=== PATIENT | male | born 1945 | race Caucasian/White ===

== ENCOUNTER 2024-04-19 15:19 | Inpatient (IN) | payer MEDICARE, OTHER ==
--- OUTSIDE RECORDS SUMMARY | 2024-04-19 15:25 | XMS REPORT | Continuity of Care Document ---
Author Name Unknown Address [address] [facility] [address] [place] [address] [facility] thconnect Address [address] 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 Crating Name Role Phone Gwendolyn Thomas Primary Care Physician [phone] TROY SHARMA Attending Clinician Unavailable ALEJANDRINA SANDS Attending Clinician Alejandrina Simon MD Attending Clinician [phone] Doctor Unassigned, [place] Attending Clinician Troy Means MD Attending Clinician [phone] Payers Payer Name Policy Type Policy Number Effective Date Expirati on Date Source MEDICARE PART A \\T\\ B [id number] 2012 00:00:00 2021 00:00:00 [facility]AC[facility] [id number] 2012 00:00:00 2022 00:00:00 [place] [place]MI[place] H[place]/POS [id number] 2022 00:00:00 Problems Condition Name Condition Details Condition Category Status Onset Date Resolution Date Last Treatment Date Treating Clinician Comments Source Pneumonia Pneumonia Disease Active 03-23 00:00: 00 [facility] Hematuria Hematuria Disease Active 6 00:00: 00 [facility] Elbow pain Elbow pain Disease Active 03-06 00:00: 00 [facility] Pulmonary embolism Pulmonary embolism Disease Active 03-05 00:00: 00 [facility] Allergies, Adverse Reactions, Alerts Allergy Name Allergy Type Status Severity Reaction(s) Onset Date Inactive Date Treating Clinician Comments Source Iodine And Iodide Containi ng Products Propensi ty to adverse reaction s Active Hives 06-24 00:00: 00 [facility] Iodine Propensi ty to adverse reaction s Active Itching 03-22 00:00: 00 [facility] Nitrofur antoin Macrocry stalline Propensi ty to adverse reaction s Active Itching 03-22 00:00: 00 [facility] Iodinate d Contrast - Oral and IV Dye DA Active MS 03-17 00:00: 00 [facility] Iodinate d Contrast - Oral and IV Dye DA Active U 16 00:00: 00 [facility] Penicill ins DA Active MS 16 00:00: 00 [facility] Sulfa (Sulfona mide Antibiot ics) DA Active MS 16 00:00: 00 [facility] nitrofur antoin DA Active MS 16 00:00: 00 [facility] bee venom protein (honey bee) DA Active MO 16 00:00: 00 [facility] Amoxicil sudhir Propensi ty to adverse reaction s Active Rash 19 00:00: 00 [facility] Bee Sting / Venom Propensi ty to adverse reaction s Active Swelling 03-04 00:00: 00 [facility] Penicill ins Propensi ty to adverse reaction s Active Rash 03-04 00:00: 00 [facility] Sulfa (Sulfona mide Antibiot ics) Propensi ty to adverse reaction s Active Rash 03-04 00:00: 00 [facility] Social History Social Habit Start Date Stop Date Quantity Comments Source History of tobacco use Cigarette Smoker [facility] Exposure to SARS-CoV-2 (event) 2022-06-14 00:00:00 2022-06-24 08:06:00 Not sure [facility] Alcohol intake 2019-03-23 00:00:00 2019-03-23 00:00:00 Current non-drinker of alcohol (finding) [facility] Tobacco use and exposure 2018-04-16 00:00:00 2018-04-16 00:00:00 Smokeless tobacco non-user [facility] Sex Assigned At 1945 00:00:00 1945 00:00:00 [facility] Smoking Status Start Date Stop Date Source Ex-smoker 2018-04-16 00:00:00 2018-04[facility] Medications Ordered Medication Name Filled Medication Name Start Date Stop Date Current Medication? Ordering Clinician Indication Dosage Frequency Signature (SIG) Comments Components Source APIXABAN ORAL 06-24 18:21: 53 Yes 5mg Take 5 mg by mouth 2 (two) times daily. [facility] Levothyroxi ne 50 mcg capsule 03-23 01:32: 48 Yes 50ug Take 50 mcg by mouth daily. [facility] gabapentin 600 mg tablet 03-23 01:32: 48 Yes 600mg Take 600 mg by mouth 2 (two) times daily. [facility] allopurinol 100 mg tablet 03-23 01:32: 48 Yes 100mg Take 100 mg by mouth daily. [facility] tamsulosin 0.4 mg 24 hr capsule 03-23 01:32: 48 Yes .4mg Take 0.4 mg by mouth every evening. [facility] cyanocobala min, vitamin B-12, 1,000 mcg Cap 03-23 01:32: 48 Yes 1000ug Take 1,000 mcg by mouth daily. [facility] simvastatin 20 mg tablet 03-23 01:32: 48 Yes 20mg Take 20 mg by mouth at bedtime. [facility] lisinopril 5 mg tablet 03-23 01:32: 48 Yes 5mg Take 5 mg by mouth at bedtime. [facility] metoprolol tartrate 25 mg tablet 03-23 01:32: 48 Yes 25mg Take 25 mg by mouth 2 (two) times daily. [facility] glipiZIDE 10 mg tablet 03-23 01:32: 48 Yes 7.5mg Take 7.5 mg by mouth 2 (two) times daily before breakfast and dinner. [facility] HYDROcodone -acetaminop hen (NORCO) 10-325 mg tablet 03-23 01:32: 48 Yes 1{tbl} Take 1 tablet by mouth every 4 (four) hours as needed. [facility] metFORMIN 500 mg tablet 03-23 01:32: 48 Yes 500mg Take 500 mg by mouth 2 (two) times daily with meals. [facility] levoFLOXaci n (LEVAQUIN) 750 mg tablet 03-23 00:00: 00 Yes [id number] 750mg Take 1 tablet by mouth every 24 (twenty-fo ur) hours. [facility] Vital Signs Vital Name Observation Time Observation Value Comments S ourcarole Systolic blood pressure 2022-06-24 13:17:00 118 mm[Hg] [facility] Diastolic blood pressure 2022-06-24 13:17:00 75 mm[Hg] [facility] Heart rate 2022-06-24 13:17:00 83 /min [facility] Body temperature 2022-06-24 13:17:00 35.83 Faby [facility] Body height 2022-06-24 13:17:00 180.3 cm [facility] Body weight 2022-06-24 13:17:00 125.556 kg [facility] BMI 2022-06-24 13:17:00 38.61 kg/m2 [facility] Oxygen saturation in Arterial blood by Pulse oximetry 2022-06-24 13:17:00 97 /min [facility] Procedures Procedure Date / Time Performed Performing Clinicia n Source REFERRAL- REQUEST/RESPONSE 2022-05-07 05:01:00 Doctor Unassigned, Potter [facility] Encounters Start Date/Time End Date/Time Encounter Type Admission Type Attending Clinicians Care Facility Care Department Encounter ID Source 2022-07-18 10:40:00 2022-07-18 10:40:00 [id number] 2022-07-18 10:40:00 2022-07-18 10:40:00 [facility] [id number] [facility] 2022-07-18 10:40:00 2022-07-18 10:40:00 [facility] [id number] [facility] 2022-06-24 08:30:00 2022-06-24 08:37:28 Outpatient R ALEJANDRINA SANDS [facility] [id number] [facility] 2022-06-24 08:30:00 2022-06-24 08:37:28 Office Visit Alejandrina Sands [facility] [id number] [facility] 2022-06-11 13:01:57 2022-06-11 13:01:57 [facility] [id number] [facility] 2022-06-11 13:00:47 2022-06-11 13:00:00 [facility] [id number] [facility] 2022-06-08 00:00:00 2022-06-08 00:00:00 Orders Only Doctor Unassigned, Potter [place] [id number] [id number] [facility] 2022-05-29 13:40:00 2022-05-29 14:45:50 Outpatient R EDITH [facility] [id number] [facility] 2022-05-29 13:40:00 2022-05-29 14:45:50 Outpatient R EDITH, [facility] [id number] [facility] 2022-05-29 13:40:00 2022-05-29 14:45:50 Outpatient R EDITH, [facility] [id number] [facility] 2022-05-29 13:40:00 2022-05-29 14:45:50 Office Visit Edith [facility] [id number] [id number] [facility] 2022-05-29 00:00:00 2022-05-29 00:00:00 Orders Only Doctor Unassigned, Potter [place] [id number] [id number] [facility] 2022-05-07 00:00:00 2022-05-07 00:00:00 Orders Only Doctor Unassigned, Potter [place] [id number] [id number] [facility] Results Test Description Test Time Test Comments Results Result Co mments Source CBC W/MANUAL [id number] 07:22:00* Test Item Value Reference Range Interpretation Comme nts WHITE BLOOD CELL (test code = WBC) 7.3 K/mm3 5.7-10.5 N RED BLOOD CELL (test code = RBC) 4.30 M/mm3 4.2-5.4 N HEMOGLOBIN (test code = HGB) 12.3 g/dL 12-16 N HEMATOCRIT (test code = HCT) 37.9 % 37-47 N MEAN CELL VOLUME (test code = MCV) 88 fL 80-98 N MEAN CELL HGB (test code = MCH) 28.6 pg 27-34 N MEAN CELL HGB CONCENTRATION (test code = MCHC) 32.5 g/dL 30.8-34.1 N RED CELL DISTRIBUTION WIDTH (test code = RDW) 14.6 % 11-16 N PLT (test code = PLT) 96 K/mm3 130-400 L MEAN PLATELET VOLUME (test code = MPV) 10.4 fL 8.9-12.1 N STAIN ACCEPTABILITY (test code = STN ACCEPTABLE) STAIN ACCEPTABLE CELLS COUNTED (test code = TCC) 100 >100 SEGMENTED NEUTROPHILS (test code = SEG) 74 % 50-65 H LYMPHOCYTE (test code = LYMPH) 11 % 20-40 LL MONOCYTE (test code = MON) 13 % 2-9 H EOSINOPHIL (test code = EOS) 2 % 1-3 N NUCLEATED RED BLOOD CELL (test code = NRBC) 0 % 0-0 N PLATELET ESTIMATE (test code = PLTEST) SLIGHT DECREASE CBC W/MANUAL [id number] 06:40:00* Test Item Value Reference Range Interpretation Comme nts WHITE BLOOD CELL (test code = WBC) 7.3 K/mm3 5.7-10.5 N RED BLOOD CELL (test code = RBC) 4.30 M/mm3 4.2-5.4 N HEMOGLOBIN (test code = HGB) 12.3 g/dL 12-16 N HEMATOCRIT (test code = HCT) 37.9 % 37-47 N MEAN CELL VOLUME (test code = MCV) 88 fL 80-98 N MEAN CELL HGB (test code = MCH) 28.6 pg 27-34 N MEAN CELL HGB CONCENTRATION (test code = MCHC) 32.5 g/dL 30.8-34.1 N RED CELL DISTRIBUTION WIDTH (test code = RDW) 14.6 % 11-16 N PLT (test code = PLT) 96 K/mm3 130-400 L MEAN PLATELET VOLUME (test c ode = MPV) 10.4 fL 8.9-12.1 N STAIN ACCEPTABILITY (test co de = STN ACCEPTABLE) CELLS COUNTED (test code = TCC) >100 SEGMENTED NEUTROPHILS (test code = SEG) % 50-65 LYMPHOCYTE (test code = LYMPH) % 20-40 NUCLEATED RED BLOOD CELL (te st code = NRBC) 0 % 0-0 N CBC W/AUTO [id number] 06:40:00* Test Item Value Reference Range Interpretation Comme nts WHITE BLOOD CELL (test code = WBC) 7.3 K/mm3 5.7-10.5 N RED BLOOD CELL (test code = RBC) 4.30 M/mm3 4.2-5.4 N HEMOGLOBIN (test code = HGB) 12.3 g/dL 12-16 N HEMATOCRIT (test code = HCT) 37.9 % 37-47 N MEAN CELL VOLUME (test code = MCV) 88 fL 80-98 N MEAN CELL HGB (test code = MCH) 28.6 pg 27-34 N MEAN CELL HGB CONCENTRATION (test code = MCHC) 32.5 g/dL 30.8-34.1 N RED CELL DISTRIBUTION WIDTH (test code = RDW) 14.6 % 11-16 N PLT (test code = PLT) 96 K/mm3 130-400 L MEAN PLATELET VOLUME (test code = MPV) 10.4 fL 8.9-12.1 N NEUTROPHIL % (test code = NT%) 70.4 % 45-70 H LYMPHOCYTE % (test code = LY%) 10.8 % 20-40 L MONOCYTE % (test code = MO%) 17.2 % 3-10 H EOSINOPHIL % (test code = EO%) 0.7 % 1-5 L BASOPHIL % (test code = BA%) 0.4 % 0.0-1.1 N NEUTROPHIL # (test code = NT#) 5.16 K/mm3 2.00-7.50 N LYMPHOCYTE # (test code = LY#) 0.79 K/mm3 1.50-4.00 L MONOCYTE # (test code = MO#) 1.26 K/mm3 0.2-0.8 H EOSINOPHIL # (test code = EO#) 0.05 K/mm3 0.04-0.4 N BASOPHIL # (test code = BA#) 0.03 K/mm3 0.02-0.10 N MANUAL DIFF REQUIRED (test code = MDIFF) YES MANUAL DIFF MANUAL DIFF REQUIRED. NUCLEATED RED BLOOD CELL (test code = NRBC) 0 % 0-0 N CBC W/MANUAL [id number] 06:40:00* Test Item Value Reference Range Interpretation Comme nts STAIN ACCEPTABILITY (test co de = STN ACCEPTABLE) CELLS COUNTED (test code = TCC) >100 SEGMENTED NEUTROPHILS (test code = SEG) % 50-65 LYMPHOCYTE (test code = LYMPH) % 20-40 [id number] 05:30:00* Test Item Value Reference Range Interpretation Comme nts GLUBED (test code = GLUBED) 106 mg/dL 60-125 N [id number] 20:21:00* Test Item Value Reference Range Interpretation Comme nts GLUBED (test code = GLUBED) 104 mg/dL 60-125 N [id number] 17:11:00* Test Item Value Reference Range Interpretation Comme nts GLUBED (test code = GLUBED) 100 mg/dL 60-125 N - XR HIP W/PEL UNI 2+V [id number] 12:37:00Patient Name: JAMIA DANIELLE Unit No: [id number] EXAMS: CPT CODE: [id number] XR HIP W/PEL UNI 2+[place] [address] AP PORTABLE RIGHT SHOULDER COMMENT: The patient is status post reverse prosthesis placement which is articulating normally. RIGHT HIP 2 VIEWS PORTABLE degenerative change is noted. There is no evidence for displaced fracture. at 1237 Reported and signed by: Anthony Powers MD CC: Shakir Bell; Fabián Childs MD Technologist: ANJUM BENTLEY, RT(R) Transcribed D/ (1237) tMONICAL [facility] NAME: JAMIA DANIELLE [address] [facility] [address] PHYS: Shakir Kim MD : 1945 AGE: 73 SEX: M [place], [place] [address] LOC: Y.314 A PHONE #: [phone] EXAM DATE: 03/17/2019 STATUS: ADM IN FAX #: [phone] RAD #: D/C DT PAGE 1 Signed Report PatientName: JAMIA DANIELLE Unit No: [id number] EXAMS: CPT CODE: [id number] XR HIP W/PEL UNI 2+[place] [address] (Continued) Orig Print D/T: S: 03/18/2019 (1240) [facility] NAME: JAMIA DANIELLE [address] [facility] PHYS: Shakir Kim MD : 1945 AGE: 73 SEX: M [place], [place] [address] LOC: Y.314 A PHONE #: [phone] EXAM DATE: 03/17/2019 STATUS: ADM IN FAX #: [phone] RAD #: D/C DT PAGE 2 Signed Report- XR SHOULDER 1 V [id number] 12:37:00Patient Name: JAMIA DANIELLE Unit No: [id number] EXAMS: CPT CODE: [id number] XR SHOULDER 1 [place] [address] AP PORTABLE RIGHT SHOULDER COMMENT: The patient is status post reverse prosthesis placementwhich is articulating normally. RIGHT HIP 2 VIEWS PORTABLE degenerative change is noted. There is no evidence for displaced fracture. at 1237 Reported and signed by: Anthony Powers MD CC: Fabián Childs MD Technologist:KRYSTAL KAISER RT(R) Transcribed D/ (1237) KatelynJCL [facility] NAME: JAMIA DANIELLE [address] [facility] PHYS: Fabián Rossi MD : 1945 AGE: 73 SEX: M [place], [place] [address] LOC: Y.314 A PHONE #: [phone] EXAM DATE: 03/17/2019 STATUS: ADM IN FAX #: [phone] RAD #: D/C DT PAGE 1 Signed Report Patient Name: MARLY DANIELLE Unit No: [id number] EXAMS: CPT CODE: [id number] XR SHOULDER 1 V RT [address] (Continued) Orig Print D/T: S: 03/18/2019 (1240) [facility] NAME: JAMIA DANIELLE [address] [facility] [address] PHYS: Fabián Rossi MD : 1945 AGE: 73 SEX: M [place], [place] [address] LOC: Marlene Yen PHONE #: [phone] EXAM DATE: 03/17/2019 STATUS: ADM IN FAX #: [phone] RAD #:D/C DT PAGE 2 Signed [id number] 11:56:00* Test Item Value Reference Range Interpretation Comme nts GLUBED (test code = GLUBED) 111 mg/dL 60-125 N B-TYPE NATRIURETIC [id number] 08:57:00* Test Item Value Reference Range Interpretation Comme nts B-TYPE NATRIURETIC PEPTIDE ( test code = BNP) 21.16 pg/mL 0-100 B-TYPE NATRIURETIC [id number] 08:57:00* Test Item Value Reference Range Interpretation Comme nts B-TYPE NATRIURETIC PEPTIDE ( test code = BNP) 21.16 pg/mL 0-100 N THROMBOPLASTIN TIME [id number] 07:41:00* Test Item Value Reference Range Interpretation Comme nts PTT ACTIVATED (test code = APTT) 30.2 secs 24.9-37.0 N IS PATIENT ON ANTICOAGULANTS ? MDas Lab been notified if Patient is on Heparin Drip? NOCOMPREHENSIVE METABOLIC [id number] 07:30:00* Test Item Value Reference Range Interpretation Comme nts SODIUM (test code = NA) 142 mmol/L 136-145 N POTASSIUM (test code = K) 4.5 mmol/L 3.5-5.1 N CHLORIDE (test code = CL) 103.0 mmol/L 98-107 N CARBON DIOXIDE (test code = CO2) 25.0 mmol/L 21-32 N GLUCOSE (test code = GLU) 117 mg/dL 70-110 H BLOOD UREA NITROGEN (test code = BUN) 22 mg/dL 7-18 H GLOMERULAR FILTRATION RATE (test code = GFR) 53.0 >60 Unit of m easure: mL/min/1.73 m2Lqlessdcj Range:Healthy Adults >90 mL/min/1.73 m2 For Chronic Kidney Disease: Stage II Mild Decrease in GFR 60-90 Stage III Moderate Decrease in GFR 30-59 Stage IV Severe Decrease in GFR 15-29 Stage V Kidney Failure <15 CREATININE (test code = CREAT) 1.33 mg/dL 0.55-1.30 H TOTAL PROTEIN (test code = PROT) 6.1 g/dL 6.4-8.2 L ALBUMIN (test code = ALB) 3.5 g/dL 3.4-5.0 N GLOBULIN (test code = GLOB) 2.6 g/dL 2.2-4.2 N ALBUMIN/GLOBULIN RATIO (test code = A/G) 1.4 0.7-2.0 N CALCIUM (test code = CA) 8.2 mg/dL 8.2-10.1 N BILIRUBIN TOTAL (test code = BILT) 0.35 mg/dL 0.2-1.00 N SGOT/AST (test code = AST) 25.0 U/L 15-37 N SGPT/ALT (test code = ALT) 33.0 U/L 12-78 N Please note new normal range. ALKALINE PHOSPHATASE TOTAL (test code = ALKP) 51 U/L 46-116 N [id number] 07:30:00* Test Item Value Reference Range Interpretation Comme nts MAGNESIUM (test code = MAG) 1.7 mg/dL 1.8-2.4 L CBC W/AUTO [id number] 05:52:00* Test Item Value Reference Range Interpretation Comme nts WHITE BLOOD CELL (test code = WBC) 7.5 K/mm3 5.7-10.5 N RED BLOOD CELL (test code = RBC) 4.32 M/mm3 4.2-5.4 N HEMOGLOBIN (test code = HGB) 12.3 g/dL 12-16 N HEMATOCRIT (test code = HCT) 38.0 % 37-47 N MEAN CELL VOLUME (test code = MCV) 88 fL 80-98 N MEAN CELL HGB (test code = MCH) 28.5 pg 27-34 N MEAN CELL HGB CONCENTRATION (test code = MCHC) 32.4 g/dL 30.8-34.1 N RED CELL DISTRIBUTION WIDTH (test code = RDW) 14.5 % 11-16 N PLT (test code = PLT) 92 K/mm3 130-400 L MEAN PLATELET VOLUME (test c ode = MPV) 10.2 fL 8.9-12.1 N NEUTROPHIL % (test code = NT%) 73.1 % 45-70 H LYMPHOCYTE % (test code = LY%) 11.1 % 20-40 L MONOCYTE % (test code = MO%) 15.0 % 3-10 H EOSINOPHIL % (test code = EO%) 0.1 % 1-5 L BASOPHIL % (test code = BA%) 0.3 % 0.0-1.1 N NEUTROPHIL # (test code = NT#) 5.46 K/mm3 2.00-7.50 N LYMPHOCYTE # (test code = LY#) 0.83 K/mm3 1.50-4.00 L MONOCYTE # (test code = MO#) 1.12 K/mm3 0.2-0.8 H EOSINOPHIL # (test code = EO#) 0.01 K/mm3 0.04-0.4 L BASOPHIL # (test code = BA#) 0.02 K/mm3 0.02-0.10 N MANUAL DIFF REQUIRED (test c ode = MDIFF) NO MANUAL DIFF NUCLEATED RED BLOOD CELL (te st code = NRBC) 0 % 0-0 N [id number] 05:25:00* Test Item Value Reference Range Interpretation Comme nts GLUBED (test code = GLUBED) 110 mg/dL 60-125 N [id number] 21:26:00* Test Item Value Reference Range Interpretation Comme nts GLUBED (test code = GLUBED) 180 mg/dL 60-125 H CBC W/AUTO [id number] 15:54:00* Test Item Value Reference Range Interpretation Comme nts WHITE BLOOD CELL (test code = WBC) 5.6 K/mm3 5.7-10.5 L RED BLOOD CELL (test code = RBC) 4.15 M/mm3 4.2-5.4 L HEMOGLOBIN (test code = HGB) 12.0 g/dL 12-16 N HEMATOCRIT (test code = HCT) 37.0 % 37-47 N MEAN CELL VOLUME (test code = MCV) 89 fL 80-98 N MEAN CELL HGB (test code = MCH) 28.9 pg 27-34 N MEAN CELL HGB CONCENTRATION (test code = MCHC) 32.4 g/dL 30.8-34.1 N RED CELL DISTRIBUTION WIDTH (test code = RDW) 14.8 % 11-16 N PLT (test code = PLT) 66 K/mm3 130-400 LL PLT ESTIMATE FROM SLIDE REVIEW: SLIGHTLY DECREASEDFEW LARGE PLTS PRESENT MEAN PLATELET VOLUME (test code = MPV) 10.7 fL 8.9-12.1 N NEUTROPHIL % (test code = NT%) 81.7 % 45-70 H LYMPHOCYTE % (test code = LY%) 11.9 % 20-40 L MONOCYTE % (test code = MO%) 4.3 % 3-10 N EOSINOPHIL % (test code = EO%) 0.5 % 1-5 L BASOPHIL % (test code = BA%) 0.5 % 0.0-1.1 N NEUTROPHIL # (test code = NT#) 4.53 K/mm3 2.00-7.50 N LYMPHOCYTE # (test code = LY#) 0.66 K/mm3 1.50-4.00 L MONOCYTE # (test code = MO#) 0.24 K/mm3 0.2-0.8 N EOSINOPHIL # (test code = EO#) 0.03 K/mm3 0.04-0.4 L BASOPHIL # (test code = BA#) 0.03 K/mm3 0.02-0.10 N MANUAL DIFF REQUIRED (test code = MDIFF) NO MANUAL DIFF NUCLEATED RED BLOOD CELL (test code = NRBC) 0 % 0-0 N [id number] 11:21:00* Test Item Value Reference Range Interpretation Comme nts GLUBED (test code = GLUBED) 100 mg/dL 60-125 N - CT UP EXTREM W/O CONT [id number] 06:50:00Patient Name: JAMIA DANIELLE Unit No: [id number] EXAMS: CPT CODE: [id number] CT UP EXTREM W/[place] [address] TECHNIQUE: Volumetric CT data of the right shoulder was obtained without use of intravenous contrast. Images were then viewed in the axial, coronal and sagittal planes. CT radiation doseoptimization is achieved for this examination by the use of a CT protocol in accordance with ACR practice standards and adherence to director housekeeping's recommendations. INDICATION: PAIN COMPARISON: None. 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 There is also fatty infiltration of the teres minor. The subscapularis muscle is normal in size.. The humeral head is elevated, abutting the acromion undersurface which is slightly remodeled. Severe glenohumeral degenerative changes are seen with obliteration of the anterior joint space. Loose body superiorly measures 7 mm. Moderate AC joint degenerative changes. Visualized right lung is clear. 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 at 0650 Reported and signed by: Cabrera Marcelo M.D. CC: Fabián Childs MD Technologist: Neena Tyler, RT(R) CTDI: DLP: Trnscrpt: 03/02/2019 (0650) Kaya [facility] NAME: JAMIA DANIELLE [address] [facility] PHYS: Fabián Rossi MD : 1945 AGE: 73 SEX: M [place] [address] LOC: Y.RAD PHONE #: [phone] EXAM DATE: 03/01/2019 STATUS: DEP CLI FAX #: [phone] RAD #: D/C DT PAGE 1 Signed Report Patient Name: JAMIA DANIELLE Unit No: [id number] EXAMS: CPT CODE: [id number] CT UP EXTREM W/[place] [address] (Continued) Orig Print D/T: S: 03/02/2019 (0653) [facility] NAME: JAMIA DANIELLE [address] [facility] PHYS: Fabián Rossi MD : 1945 AGE: 73 SEX: M [place] [address] LOC: Y.RAD PHONE #: [phone] EXAM DATE: 03/01/2019 STATUS: DEP CLI FAX #: [phone] RAD #: D/C DT PAGE 2 Signed ReportPROTHROMBIN [id number] 17:04:00* Test Item Value Reference Range Interpretation Comme nts PROTHROMBIN TIME PATIENT (test code = PTP) 13.8 secs 10.1-12.5 H INTERNATIONAL NORMAL RATIO (test code = INR) 1.22 <2.0 RECOMMENDED THER APEUTIC RANGE FOR ORAL ANTICOAGULANTTREATMENT: CONDITION INRProphylaxis of venous thrombosis in 2.0 - 3.0 high-risk medical or surgical patientsTreatment of venous thrombosis 2.0 - 3.0Prevention of embolism 2.0 - 3.0Prevention of recurrent embolism, or 3.0 - 4.5 patients with mechanical prosthetic intravascular valves IS PATIENT ON ANTICOAGULANTS ? YLIST ANTICOAGULANT/ANTI PLT MEDICATION : OtherHas Lab been notifiedif Patient is on Heparin Drip? NOIf Yes, order CBC, OCCULT BLOOD, PT every other day NTHROMBOPLASTIN TIME [id number] 17:04:00 * Test Item Value Reference Range Interpretation Comme nts PTT ACTIVATED (test code = APTT) 36.3 secs 24.9-37.0 N IS PATIENT ON ANTICOAGULANTS ? YLIST ANTICOAGULANT/ANTI PLT MEDICATION : OtherHas Lab been notifiedif Patient is on Heparin Drip? NOIf Yes, order CBC, OCCULT BLOOD, PT every other day NCOMPREHENSIVE METABOLIC [id number] 16:09:00* Test Item Value Reference Range Interpretation Comme nts SODIUM (test code = NA) 144 mmol/L 136-145 N POTASSIUM (test code = K) 4.3 mmol/L 3.5-5.1 N CHLORIDE (test code = CL) 104.0 mmol/L 98-107 N CARBON DIOXIDE (test code = CO2) 29.7 mmol/L 21-32 N GLUCOSE (test code = GLU) 85 mg/dL 70-110 N BLOOD UREA NITROGEN (test code = BUN) 19 mg/dL 7-18 H GLOMERULAR FILTRATION RATE (test code = GFR) 67.4 >60 Unit of m easure: mL/min/1.73 v3Gjljhupmd Range:Healthy Adults >90 mL/min/1.73 m2 For Chronic Kidney Disease: Stage II Mild Decrease in GFR 60-90 Stage III Moderate Decrease in GFR 30-59 Stage IV Severe Decrease in GFR 15-29 Stage V Kidney Failure <15 CREATININE (test code = CREAT) 1.08 mg/dL 0.55-1.30 N TOTAL PROTEIN (test code = PROT) 7.1 g/dL 6.4-8.2 N ALBUMIN (test code = ALB) 4.2 g/dL 3.4-5.0 N GLOBULIN (test code = GLOB) 2.9 g/dL 2.2-4.2 N ALBUMIN/GLOBULIN RATIO (test code = A/G) 1.5 0.7-2.0 N CALCIUM (test code = CA) 9.5 mg/dL 8.2-10.1 N BILIRUBIN TOTAL (test code = BILT) 0.47 mg/dL 0.2-1.00 N SGOT/AST (test code = AST) 21.0 U/L 15-37 N SGPT/ALT (test code = ALT) 33.0 U/L 12-78 N Please note new normal range. ALKALINE PHOSPHATASE TOTAL (test code = ALKP) 63 U/L 46-116 N CBC W/AUTO UHUA9376-80-51 15:57:00* Test Item Value Reference Range Interpretation Comme nts WHITE BLOOD CELL (test code = WBC) 4.8 K/mm3 5.7-10.5 L RED BLOOD CELL (test code = RBC) 5.58 M/mm3 4.2-5.4 H HEMOGLOBIN (test code = HGB) 16.0 g/dL 12-16 N HEMATOCRIT (test code = HCT) 48.7 % 37-47 H MEAN CELL VOLUME (test code = MCV) 87 fL 80-98 N MEAN CELL HGB (test code = MCH) 28.7 pg 27-34 N MEAN CELL HGB CONCENTRATION (test code = MCHC) 32.9 g/dL 30.8-34.1 N RED CELL DISTRIBUTION WIDTH (test code = RDW) 14.6 % 11-16 N PLT (test code = PLT) 89 K/mm3 130-400 L Platelets review ed in smear.Platelet estimate: slightly decreasedPlatelet morphology: few large platelets present MEAN PLATELET VOLUME (test code = MPV) 10.1 fL 8.9-12.1 N NEUTROPHIL % (test code = NT%) 59.4 % 45-70 N LYMPHOCYTE % (test code = LY%) 26.9 % 20-40 N MONOCYTE % (test code = MO%) 10.4 % 3-10 H EOSINOPHIL % (test code = EO%) 1.7 % 1-5 N BASOPHIL % (test code = BA%) 0.8 % 0.0-1.1 N NEUTROPHIL # (test code = NT#) 2.87 K/mm3 2.00-7.50 N LYMPHOCYTE # (test code = LY#) 1.30 K/mm3 1.50-4.00 L MONOCYTE # (test code = MO#) 0.50 K/mm3 0.2-0.8 N EOSINOPHIL # (test code = EO#) 0.08 K/mm3 0.04-0.4 N BASOPHIL # (test code = BA#) 0.04 K/mm3 0.02-0.10 N MANUAL DIFF REQUIRED (test code = MDIFF) NO MANUAL DIFF NUCLEATED RED BLOOD CELL (test code = NRBC) 0 % 0-0 N Notes Date/Time Note Provider Source 2019-03-19 09:23:00 [id number] HdejZr5dg82CpR39UfYDvmw/Anand/m blbzhlVYB0ySZ7P+arB66cwH0shQp04Fsb1504-02-70A22:2 3:00 [facility] ([facility])Clinical NoteREPORT#:[id number] REPORT STATUS: SignedDATE:03/19/19 TIME: 922 PATIENT: JAMIA DANIELLE UNIT #: [id number]#: [id number] [facility] AGE: 73 SEX: M ATTEND: Fabián Childs [facility] AUTHOR: Everardo Salazar MD * ALL edits or amendments must be made on the electronic/computer document * Clinical NoteNote:[facility] Everardo aSnchez M.D. (cell text [phone]) Assessment/Plan1.) Anemia of acute blood loss Thrombocytopenia- .Hgb 12.3(unchanged), Plt 96K, asymptomatic.2.) POD#2 Right RSA- .acute pain control. Anticoagulation as per Dr. Childs.3.) Hypertension- .follow BP and hold Rxs if SBP<120.4.) Diabetes2 CKDz2 BPH Hyperlipidemia Hypothyroid- .continue on Rxs. Glucose controlled.* OK for DISCHARGE per Internal Medicine. Prior Events/Overnight: Moved to 5th floorChief Complaint: No significant complaints. Sitting up in chair ObjectiveVital SignsDate Temp Pulse Resp B/P B/P Mean Pulse Ox GkQ569/03-03/19 97.9-100.2 80-106 16-18 100-147/59- 76.4-102.4 97-100 28-40 80 Gen: Alert, oriented, in mild discomfort Neck: No Masses, No Thyromegaly-CV: Regular Rate Rhythm / Edema- no significant Resp: Clear To Ascultation / Normal Respiratory EffortABD: NonTender / NonDistended MS/Skin: No Cyanosis / No nodules /wriggles fingers wrist RUE, good cap refill of digitsOther: shoulder dresing dry. Labs/X-ray: Laboratory Tests: 03/19 03/19 03/18 03/18 03/18 05 0500 2007 165 1113Chemistry POC Glucose (60 - 125 mg/dL) 106 104 100 111Hematology WBC (5.7 - 10.5 K/mm3) 7.3 RBC (4.2 - 5.4 M/mm3) 4.30 Hgb (12 - 16 g/dL) 12.3 Hct (37 - 47 %) 37.9 MCV (80 - 98 fL) 88 MCH (27 - 34 pg) 28.6 MCHC (30.8 - 34.1 g/dL) 32.5 RDW (11 - 16 %) 14.6 Plt Count (130 - 400 K/mm3) 96 L MPV (8.9 - 12.1 fL) 10.4 Add Manual Diff STAIN ACCEPTABLE Total Counted (100) 100 Seg Neutrophils % (50 - 65 %) 74 H Lymphocytes % (Manual) (20 - 40 11 *L%) Monocytes % (Manual) (2 - 9 %) 13 H Eosinophils % (Manual) (1 - 3 %) 2 Nucleated RBC % (0 - 0 %) 0 Platelet Estimate SLIGHT DECREASE Everardo Sanchez M.D. at 0952 RPT #:[id number] OF REPORT CLClinical dnaa8887-61-37V16:23:00Y.MZFA68178894-0018ISVspal able for patient nacwEKQJXJHJEKUECZ6701-71-98Z40:52:36 [facility] 2019-03-19 07:24:00 QMllowhbwbw54346617y NMdp8DE6YLWAMwjrbDNqIkP4CXmDj Pk3jE19is49nqH9VYVsvS88IZbgj48pxYB5240-12-36A07:2 4:00 [facility] ([facility])Discharge SummaryREPORT#:[id number] REPORT STATUS: SignedDATE:03/19/19 TIME: 723 PATIENT: JAMIA DANIELLE UNIT #: [id number]#: [id number] ROOM/BED: 519-ADOB: [birth year] AGE: 73 SEX: M ATTEND: Fabián Childs [facility] AUTHOR: Shakir Bell MD * ALL edits or amendments must be made on the electronic/computer document * General InformationDate of discharge: 03/19/19Hospital course:Discharge Diagnosis: Right rotator cuff arthropathyDischarge: Home Pt Condition: Stable Activity: Ambulate with Assistance Diet as tolerated Sig Findings: Post op thrombocytpenia requiring transfusion of pltsTreatment Rendered: Right reverse shoulder arthroplastyPrescriptions: On chart, Called inSpecial Instructions: shoulder arthroplastyFollow- up appointment: 2 Weeks Brief Hospital CourseThe patient underwent the above procedure on their admission date without complication. Postoperatively they were transferred to the orthopedic patient care unit. They received 24hrs postoperative antibiotics. He did have post op thrombocytopenia and was transfused plts. Medicine comanaged the patient .They were transitioned from IV to oral pain medications with good control at discharge. They were placed in a sling and worked on elbow/wrist ROM and ADLs with PT. Once patient met all criteria they were deemed appropriate for discharge. They had no other complications during the visit. Med Rec Med RecDischarge meds:Stop taking the following medications:APIXABAN (ELIQUIS) 5 MG TAB ORAL TWICE DAILY. Continue taking these medications:LEVOTHYROXINE (SYNTHROID) 50 MCG TAB 50 MICROGRAM ORAL DAILY. LISINOPRIL (ZESTRIL) 5 MG TAB 5 MILLIGRAM ORAL BEDTIME. TAMSULOSIN ER (FLOMAX) 0.4 MG CAP.SR.24H 0.4 MILLIGRAM ORAL EVERY EVENING. glipiZIDE (GLUCOTROL) 5 MG TAB 7.5 MILLIGRAM ORAL TWICE DAILY. GABAPENTIN (NEURONTIN) 300 MG CAP 600 MILLIGRAM ORAL TWICE DAILY. ALLOPURINOL (ZYLOPRIM) 100 MG TAB 100 MILLIGRAM ORAL DAILY. SIMVASTATIN (ZOCOR) 20 MG TAB 20 MILLIGRAM ORAL BEDTIME. CYANOCOBALAMIN (VITAMIN B-12) 1,000 MCG TAB 1,000 MICROGRAM ORAL DAILY. METOPROLOL TARTRATE (LOPRESSOR) 25 MG TAB 25 MILLIGRAM ORAL TWICE DAILY. metFORMIN (GLUCOPHAGE) 500 MG TAB 500 MILLIGRAM ORAL TWICE DAILY. at 0726 RPT #:[id number] OF REPORT DSDischarge hdjvuyf0914-83-06C58:24:00Y.AQEU38566121-7948OEHz ailable for patient tlxvUKBJAHVLUKHGPA6308-44-13S66:26:22 [facility] 2019-03-[facility] 07:21:00 HPwbepqlefa39215675n uYRFM3CyHLvzbmtodj2G/7Gwt9mqG Ijqivky2oMNa9tyg3t+Zcf3xFJusRAs1Hd1232-63-14L13:2 1:00 [facility] ([facility])Clinical NoteREPORT#:[id number] REPORT STATUS: SignedDATE:03/19/19 TIME: 07 PATIENT: JAMIA DANIELLE UNIT #: [id number]#: [id number] [facility] [birth year] AGE: 73 SEX: M ATTEND: Fabián Childs [facility] AUTHOR: Shakir Bell MD * ALL edits or amendments must be made on the electronic/computer document * Clinical NoteNote: Subjective: Patient is alert, oriented, and resting comfortably. Tolerating PO intake well. Pain is tolerable. Denies CP or SOB. Denies Numbness, tingling or weakness. Doing well, pain controlled Objective: R Shoulder- dressing is clean, dry, and intact. Arm in sling. Sensation intact to Axillary, radial, median, ulnar nerves Able to fire deltoid Intact motor function in radial, median, ulnar nerves Radial pulse palpable Drain low outputLaboratory Tests 03/19/19 0500:[Embedded Image Not Available]Vital SignsDate Temp Pulse Resp B/P B/P Mean Pulse Ox FqB610/03-03/19 36.4-37.9 80-106 16-18 100-147/59-8 76.4-102.4 97-100 28-40 0 Assessment/ Plan: s/p R RSA DC Drain by nursingThrombocytopenia- plts 96 this am, stablePain controlMed consult appreciate comanagementDispo-DC Home today when drain removedF/u in 2 weeks. at 0722 RPT #:[id number] OF REPORT CLClinical ghfm3930-18-92A02:21:00Y.HIRP03290965-3195DKAxpbd able for patient xmgqCRQHFOOBUBWTJO6824-40-71E29:23:13 [facility] 2019-03-18 09:11:00 APhnbnkakhw68021880b YNF+wXmADG3IySSIaZLCd0F3nKYhS p58UBwQUCFVfw6liF2NqZUycwEIegsHaPN2528-52-78A10:1 1:00 [facility] ([facility])Clinical NoteREPORT#:[id number] REPORT STATUS: SignedDATE:03/18/19 TIME: 910 PATIENT: JAMIA DANIELLE UNIT #: [id number]#: [id number] [facility] [birth year] AGE: 73 SEX: M ATTEND: Fabián Childs [facility] AUTHOR: Everardo Salazar MD * ALL edits or amendments must be made on the electronic/computer document * Clinical NoteNote:[facility] Everardo Sanchez M.D. (cell text [phone]) Assessment/Plan1.) Anemia of acute blood loss- .Hgb 12.3, asymptomatic.2.) S/p Right RSA- .acute pain control. Anticoagulation as per Dr. Childs.3.) Hypertension- .follow BP and hold Rxs if SBP<120.4.) Diabetes2 CKDz2 BPH Hyperlipidemia Hypothyroid- .continue on Rxs. Glucose controlled. Prior Events/Overnight: Uneventful.Chief Complaint: No significant complaints. ObjectiveVital SignsDate Temp Pulse Resp B/P B/P Mean Pulse Ox GxK188/-03/18 96.4-97.6 75-103 13-20 101-164/64-84 78.7-103 95-100 32-40 Gen: Alert, oriented, in mild discomfort Neck: No Masses, No Thyromegaly-CV: Regular Rate Rhythm / Edema- no significant Resp: Clear To Ascultation / Normal Respiratory EffortABD: NonTender / NonDistended MS/Skin: No Cyanosis / No nodules /wriggles fingers wrist RUE, good cap refill of digitsOther: shoulder dresing dry. Labs/X-ray: Laboratory Tests: 03/18 03/18 03/18 03/17 03/17 0507 0507 0505 2111 1514 Chemistry Sodium (136 - 145 mmol/L) 142 Potassium (3.5 - 5.1 mmol/L) 4.5 Chloride (98 - 107 mmol/L) 103.0 Carbon Dioxide (21 - 32 mmol/L) 25.0 BUN (7 - 18 mg/dL) 22 H Creatinine (0.55 - 1.30 mg/dL) 1.33 H Glomerular Filtr Rate (>60) 53.0 Glucose (70 - 110 mg/dL) 117 H POC Glucose (60 - 125 mg/dL) 110 180 H Calcium (8.2 - 10.1 mg/dL) 8.2 Magnesium (1.8 - 2.4 mg/dL) 1.7 L Total Bilirubin (0.2 - 1.00 mg/dL) 0.35 AST (15 - 37 U/L) 25.0 ALT (12 - 78 U/L) 33.0 Total Alk Phosphatase (46 - 116 U/L) 51 B-Natriuretic Peptide (0 - 100 pg/mL) 21.16 Total Protein (6.4 - 8.2 g/dL) 6.1 L Albumin (3.4 - 5.0 g/dL) 3.5 Globulin (2.2 - 4.2 g/dL) 2.6 Albumin/Globulin Ratio (0.7 - 2.0) 1.4 Coagulation APTT (24.9 - 37.0 secs) 30.2 Hematology WBC (5.7 - 10.5 K/mm3) 7.5 5.6 L RBC (4.2 - 5.4 M/mm3) 4.32 4.15 L Hgb (12 - 16 g/dL) 12.3 12.0 Hct (37 - 47 %) 38.0 37.0 MCV (80 - 98 fL) 88 89 MCH (27 - 34 pg) 28.5 28.9 MCHC (30.8 - 34.1 g/dL) 32.4 32.4 RDW (11 - 16 %) 14.5 14.8 Plt Count (130 - 400 K/mm3) 92 L 66 *L MPV (8.9 - 12.1 fL) 10.2 10.7 Neut % (Auto) (45 - 70 %) 73.1 H 81.7 H Lymph % (Auto) (20 - 40 %) 11.1 L 11.9 L [place] % (Auto) (3 - 10 %) 15.0 H 4.3 Eos % (Auto) (1 - 5 %) 0.1 L 0.5 L Baso % (Auto) (0.0 - 1.1 %) 0.3 0.5 Neut # (Auto) (2.00 - 7.50 K/mm3) 5.46 4.53 Lymph # (Auto) (1.50 - 4.00 K/mm3) 0.83 L 0.66 L [place] # (Auto) (0.2 - 0.8 K/mm3) 1.12 H 0.24 Eos # (Auto) (0.04 - 0.4 K/mm3) 0.01 L 0.03 L Baso # (Auto) (0.02 - 0.10 K/mm3) 0.02 0.03 Add Manual Diff (MANUAL DIFF) NO NO Nucleated RBC % (0 - 0 %) 0 0 05/02 1110 Chemistry POC Glucose (60 - 125 mg/dL) 100 Everardo Sanchez M.D. at 0936 RPT #:[id number] OF REPORT CLClinical ltpr6391-28-58V28:11:00Y.MLYS32621410-2351GKWeskl able for patient lwxsMFNIXZHSJRGFIF5354-67-06G04:36:30 [facility] 2019-03-18 07:47:00 XSwdblsexmu48568090q hq2NyiqtELBfmETAr3M7dzYxNfivs iA/stqJALckA6OVelfQC4GoUvfHYbvZVvN5205-03-46B48:4 7:00 [facility] ([facility])Pain Management Progress NoteREPORT#:[id number] REPORT STATUS: SignedDATE:03/18/19 TIME: 0747 PATIENT: JAMIA DANIELLE UNIT #: [id number]#: [id number] [facility] [birth year] AGE: 73 SEX: M ATTEND: Fabián Childs MDADM AUTHOR: Shari Gaspar NP * ALL edits or amendments must be made on the electronic/computer document * SubjectiveChief Complaint:R SHOULDER PAIN S/P TSAComments:Last Documented: Result Date Time Pulse Ox 99 03/18 459 B/P 111/69 03/18 0459 B/P Mean 83.3 03/189 O2 Delivery Nasal cannula 03/18 459 Temp 36.0 03/18 045 Pulse 75 03/18 0459 Resp 17 03/18 045 FiO2 32 03/18 0219 O2 Flow Rate 3.406618 03/18 219 History: PMH: NIDDM, HTN, BPH, PE-04/02 POD: 1 APMS RN: Micheal BOND RN MD who placed block: DR. DELGADO Type of block: IS S/S Time block wore off: "SOMETIME DURING THE NIGHT" Activity status: PT SITTING UP IN BED EATING BREAKFAST. Pain: DENIES PAIN Physical Exam: VAS: 0 LOS: 1 Resp Quality: 1 Side Effects: NONE PT APPEARS COMFORTABLE AT THIS TIME. MOTOR MVMT AND STRENGTH INTACT TO RUE. Plan: BLOCK FOLLOW UP at 0749 RPT #:[id number] OF REPORT PRProgress Antf1336-58-80F01:47:00Y.UJUD72595692-2340LZRyyrw able for patient xnkiINLXGXSDHUDAIX1417-08-10Y25:49:45 [facility] 2019-03-18 07:47:00 CSznxptkcgn74338751/ Wi8b5qg4B3C//9qNQb0htLU0M+gvu zIWf7pR9sv4Hk2e8z6hk9CYMXavkt47OUK9151-10-49E09:4 7:00 [facility] ([facility])Pain Management Progress NoteREPORT#:[id number] REPORT STATUS: SignedDATE:03/18/19 TIME: 746 PATIENT: JAMIA DANIELLE UNIT #: [id number]#: [id number] [facility] [birth year] AGE: 73 SEX: M ATTEND: Fabián Childs MDADM AUTHOR: Shari Gaspar NP * ALL edits or amendments must be made on the electronic/computer document * SubjectiveChief Complaint:R SHOULDER PAIN S/P TSAComments:Last Documented: Result Date Time Pulse Ox 99 03/18 459 B/P 111/69 03/18 459 B/P Mean 83.3 03/18 459 O2 Delivery Nasal cannula 03/18 459 Temp 36.0 03/18 459 Pulse 75 03/18 0459 Resp 17 03/18 459 FiO2 32 03/18 021 O2 Flow Rate 3.994197 03/18 219 History: PMH: NIDDM, HTN, BPH, PE-04/02 POD: 1 APMS RN: Micheal BOND RN MD who placed block: DR. DELGADO Type of block: IS S/S Time block wore off: "SOMETIME DURING THE NIGHT" Activity status: PT SITTING UP IN BED EATING BREAKFAST. Pain: DENIES PAIN Physical Exam: VAS: 0 LOS: 1 Resp Quality: 1 Side Effects: NONE PT APPEARS COMFORTABLE AT THIS TIME. MOTOR MVMT AND STRENGTH INTACT TO RUE. Plan: BLOCK FOLLOW UP at 0749 at 1102 [facility] #:[id number] OF REPORT PRProgress Cmkf6187-26-42A91:47:00Y.FGIY12852175-4497JQHsksi able for patient ebeoSKEGNUJKFHOYZK4425-08-49Z77:02:22 [facility] 2019-03-18 07:45:00 YIondetlvns74318108l 7hUsax5PW+1OjfAdQJnxMghRXk32l z4HCae0wkNVmo4ZuIde2znQxGj4+m22d/e4450-58-24X78:4 5:00 [facility] ([facility])Clinical NoteREPORT#:[id number] REPORT STATUS: SignedDATE:03/18/19 TIME: 07 PATIENT: JAMIA DANIELLE UNIT #: [id number]#: [id number] [facility] [birth year] AGE: 73 SEX: M ATTEND: Fabián Childs [facility] AUTHOR: Shakir Bell MD * ALL edits or amendments must be made on the electronic/computer document * Clinical NoteNote:Subjective: Patient is alert, oriented, and resting comfortably. Tolerating PO intake well. Pain is tolerable. Denies CP or SOB. Denies Numbness, tingling or weakness. Received 2 units Plts last night. Objective: R Shoulder- dressing is clean, dry, and intact. Arm in sling. Sensation intact to Axillary, radial, median, ulnar nerves Able to fire deltoid Intact motor function in radial, median, ulnar nerves Radial pulse palpable Drain high output Laboratory Tests 03/18/19 0507:[Embedded Image Not Available] 03/17/19 1514:[Embedded Image Not Available]Vital Signs Date Temp Pulse Resp B/P B/P Mean Pulse Ox FiO2 03/17-03/18 35.8-36.4 75-103 13-20 111-164/64-84 83.3-103 95-100 32 Assessment/ Plan: s/p R RSA Maintain drain, transition to gravity, monitor outputThrombocytopenia- plts 92 this am, monitorTransition to oral pain medsMed consult appreciate comanagementDispo- likely dc home tomorrow at 0746 [facility] #:[id number] OF REPORT CLClinical vrdz4180-26-06Y99:45:00Y.JXIS25521059-4153IPDgmwg able for patient vbjzYSNUFTARZQSMAX3036-66-84W20:47:05 [facility] 2019-03-17 18:08:00 HVomzpsdeyy90445255B GtRiGb5c6RlBluqRKNLaztIMcYKMJ l4ZYWS5B+bz7V0Ch5YHH6GvNMGksUaTOGP5180-64-63N74:0 8:00 [facility] ([facility])Clinical NoteREPORT#:[id number] REPORT STATUS: SignedDATE:03/17/19 TIME: 1808 PATIENT: JAMIA DANIELLE UNIT #: [id number]#: [id number] [facility] [birth year] AGE: 73 SEX: M ATTEND: Fabián Childs [facility] AUTHOR: Everardo Salazar MD * ALL edits or amendments must be made on the electronic/computer document * Clinical NoteNote:[facility] Everardo Sanchez MD(cell text [phone])Internal Medicine Consult at request of : Dr Fabián Childs Chief Complaint: Right shoulder pain HPI: .73 yo M now s/p Right total shoulder arthroplasty (TSA) with reverse prosthesis by Dr. Childs. relates years of progressive right shoulder pain (recently severe), worse with activity, and achy and stiff at times in quality. He has failed conservative management. Comorbidities: see below. 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 Type 2 diabetes, Fatty liver with splenomegaly, Hypercholesterolemia, , CKD 2, BPH, Nephrolithiasis, Hypothyroidism, Gout, Peripheral neuropathy ALLERGY: Allergies:bee venom protein (honey bee) (Coded, Intermediate, SWELLING., 03/01/19)Iodinated Contrast- Oral and IV Dye (Coded, Mild, RASH, 03/17/19)Penicillins (Coded, Mild, ITCHING, RASH., 03/01/19)Sulfa (Sulfonamide Antibiotics) (Coded, Mild, ITCHING, RASH., 03/01/19)nitrofurantoin (From MACRODANTIN) (Coded, Mild, ITCHING, RASH., 03/01/19) Home Medications: Home Medications:LEVOTHYROXINE (SYNTHROID) 50 MCG PO DAILY LISINOPRIL (ZESTRIL) 5 MG PO BEDTIME APIXABAN (ELIQUIS) 5 MG PO BID TAMSULOSIN ER (FLOMAX) 0.4 MG PO QPM glipiZIDE (GLUCOTROL) 7.5 MG PO BID GABAPENTIN (NEURONTIN) 600 MG PO BID ALLOPURINOL (ZYLOPRIM) 100 MG PO DAILY SIMVASTATIN (ZOCOR) 20 MG PO BEDTIME CYANOCOBALAMIN (VITAMIN B-12) 1,000 MCG PO DAILY METOPROLOL TARTRATE (LOPRESSOR) 25 MG PO BID metFORMIN (GLUCOPHAGE) 500 MG PO BID SgHx: .Knee arthroscopy, lithotripsy x 12, Right RCR, Left TKA SHx: Tob: Quit 1983 FHx: .No significant hx of DVT/PE.Alcohol: none Drugs: none Lives: with spouse and children ROS: [X] too sleepy to fully participate in ROS Vitals:Vital Signs Date Temp Pulse Resp B/P B/P Mean Pulse Ox FiO2 /02 97.3-97.6 86-103 13-20 130-164/68-84 93-103 95-100 32 Gen: Alert, in mild discomfort, nl nutrition.EYE: Nl lids conjunctiva.ENT: Nl ears Nose, nl lips,. Neck: Supple, nl thyroid, No masses.CV: Regular Rate Rhythm, no heave or significant murmur. Edema- none Feet toes normal temperature.RESP: Clear to Auscultation, normal Respiratory effort.ABD: Soft, NonDistended, obeseLYM: No significant cervical Lymphadenopathy.MS: No Clubbing, cyanosis, shoulder dressing dry (tender), arm in sling,wriggles RUE digits.NEURO: Nonfocal, grossly normal sensation of LE, . Preop Labs(03/01/19): CBC:. Hgb 16, Plt 89, CHEM: Na 144, K 4.3, Cr 1.08 (eGFR 67.4%), . Ekg: NSR (medium to high risk of complications or morbidity) (major surgery) (IV sedative, meds) Assessment Plan1.) Anemia of Acute Blood Loss- .will recheck 03/18/19. 2.) S/p Right RSA- .acute pain control. Anticoagulation as per Dr. Childs.3.) Hypertension- .follow BP and hold Rxs if SBP<120.4.) Diabetes2]CKDz2 BPH Hyperlipidemia Hypothyroid- .continue on Rxs. Everardo Sanchez M.D. Thanks! at 2240 RPT #:[id number] OF REPORT CLClinical qpac7992-84-07D22:08:00Y.OHSH58596585-7779CSYjxev able for patient ljryBBIWHTZNRLIJRS9102-27-89A19:40:59 [facility] 2019-03-17 15:16:00 LOmuamowrjh02476459G FmNZYrVow/1weW6bOzTKvCUwsCS3k lA3kWMYgknk83lV0IxoaMG3eGcaljm296P7451-82-96H66:1 6:[id number] [facility] [place] [address] PATIENT NAME: JAMIA DANIELLE ADMIT DATE: 03/17/19ACCOUNT NO: [id number] ROOM NO: Y.519 AGE: 73 REPORT TYPE: OPERATIVE REPORT SEX: M ADMITTING PHYSICIAN:Fabián Childs MD ATTENDING PHYSICIAN:Fabián Childs MD OPERATION DATE: 03/17/2019 Admitted for IV pain control and IV antibiotics. SURGEON: Fabián Childs MD SORT LINE: Lai Paul MD SECOND TRAFFIC CLERK: Shakir Bell MD REASON FOR TRAFFIC CLERK: The skilled assistance of Lai Paul MD wasnecessary during this complex surgical procedure. He assisted with every aspectof the operation including, but not limited to, proper and safe positioning ofthe patient, obtaining adequate surgical exposure, manipulation of surgicalinstruments, suture management, surgical knot tying, the continual process ofhemostasis during the procedure itself in addition to surgical wound closure andremoval of the patient from the operating table and returning the [facility]to [facility]. His assistance allowed me to perform the most sensitiveand technical potions of this operation using 2 hands, thus enhancing efficiencyand patient safety. This would not be possible without the help of a skilledassistant familiar with the procedure and capable of safely performing theaforementioned tasks. ANESTHESIA: General anesthesia single shot block per anesthesia. PREOPERATIVE DIAGNOSES:1. Right shoulder rotator cuff tear arthropathy.2. Right shoulder chronic biceps tear.3. Right shoulder contracture. POSTOPERATIVE DIAGNOSES:1. Right shoulder rotator cuff tear arthropathy.2. Right shoulder chronic biceps tear.3. Right shoulder contracture. PROCEDURES PERFORMED: Right reverse total shoulder arthroplasty withcontracture release, CPT 80790. COMPLICATIONS: None. ESTIMATED BLOOD LOSS: 200 mL. PATIENT NAME: JAMIA DANIELLE DRAINS: Drain was used at the end. SPECIMEN: Humeral head resected as part of the replacement. No specimen sent. ANTIBIOTICS: Ancef and vancomycin infused prior to incision. He had a history of nonanaphylactic reaction to PENICILLIN in years past andtolerated Ancef. Topical tranexamic acid was provided preoperative Walchclassification A1 E1. Bone quality was good, but severe osteoarthriticfindings. Preoperative rotator cuff status severe changes, full-thicknesstearing of the supraspinatus, infraspinatus, and subscapularis with severe fattyinfiltration and atrophy. Biceps tendon was chronically torn. Subscapulariswas not repairable. IMPLANTS USED: I Just Shared Perform reverse baseplate, 25 mm standardtemplate for a 29, but definitely smaller at the time of surgery and a 25 mm fitvery well. The central post was a 7-mm press-fit post. Peripheral screws;inferior, 30 locking; superior, 30 locking; anterior, 34 nonlocking; posterior,22 nonlocking; glenosphere was 39 mm standard. Excellent final tightened. StemAscend Flex 5B PTC coated standard length press-fit tray, +0 low offset index 6o'clock; polyethylene 39+6 mm standard severe contracture preoperatively. Postoperatively, range of motion comfortably just within the glenohumeral jointalong with 120, 120, 50, 85, and 90. Timeout was called, confirming the site,side, and intended procedures. Needle and sponge counts were correct prior toclosure. Deep venous thrombosis prophylaxis perioperatively. Weightbear astolerated, bilateral lower extremities. The patient was marked. Consenthistory and physical was updated. Consent was obtained. The patient understoodthe risks and benefits including pain, bleeding, infection, injury to nerve orblood vessels a severe risk of medical complications in the setting of multipleDVT/PEs in his past. He is thrombocytopenic with hypersplenism. He requiredhematology/oncology clearance. The thought would be that his platelets [id number] will be concerning for possible bleeding. He is right now [id number],000. We followed him closely and followed him closely at the time of surgeryhad platelets available to be given if needed and intraoperative orpostoperatively. Additionally, block complications incomplete taoist ofrange of motion and complete pain relief infection with his significantdiabetes, walker use and additional complications, fall risk, periprostheticfracture, dislocation and possible need for resection arthroplasty. The patientunderstands. He has been waiting for this for years. [facility] He has had injections, significant nonoperative measures and desired to proceed. Board Saw Runner needed as noted above. INDICATIONS FOR SURGERY: Severe pain interfering with basic activities of dailyliving, not responding to nonoperative care desired to proceed. OPERATIVE FINDINGS: Severe glenohumeral joint arthritis, massive irreparablerotator cuff tears consistent with rotator cuff tear arthropathy. PROCEDURE IN DETAIL: The patient was seen, was identified and marked andconsented. History and physical was updated. Transferred to the operativeroom. Timeout was called, confirming the site, side, and intended procedures. Needle and sponge counts were correct prior to closure. We were cautiousthroughout to achieve hemostasis. He did not require platelet transfusionduring the surgery as we were able to achieve hemostasis. We will closely PATIENT NAME: JAMIA DANIELLE follow this and a drain was placed. After cleaned with alcohol and sterilelyprepped and draped, an iodine-impregnated barrier drape I made a standarddeltopectoral incision, identified cephalic vein, retracted this laterally,released comprehensively humeral and glenoid contracture, retracted theconjoined tendon medially. A suture and cautery ligated the circumflex vessels. Hemostasis was achieved here. Comprehensive releases as noted staying directlyon bone. Large osteophytes on the humeral head were resected to determine theanatomical neck cut along the B cut guide was made with proper resection height,instrumented the humerus to size 5, had a nice press fit, placed a cut protectorand then retracted the humerus out of the way. Performed additional releases onthe glenoid side and labrum was absent. Severe glenohumeral joint arthritis. Used to guide pin to determine the center point and confirmed this prior toproceeding. A 25-mm fit the best, the 29 was too large, reamed and thenprepared the glenoid, felt that a post would give him excellent fixation and wasvery pleased with this and impacted into place, the final implant. Aftercopious irrigation, placed the 4 screws, had excellent tightening and thenplaced the glenosphere with excellent final tightened. No inferior impingementzones were noted. Nice positioning. At this point, trialed, it had excellentrange of motion is noted with minimal pistoning. I removed the trial component,copiously irrigated, placed the final implant, had excellent press and theminimal pistoning range of motion is noted with no instability. No obviousimpingement zones or dislocation. Very stable and pleased copiously irrigated,achieved hemostasis, placed a deep drain. Closed with 0 Vicryl, 2-0 Vicryl andMonocryl for the skin and a sterile dressing, neutral rotation sling andadmission as noted. Nonweightbearing. Dictated By: Fabián Childs MD WT: OP:Y.HIM/MORBR/NTSDD: 03/17/2019 15:16:38DT: 03/17/2019 22:39:50Conf#: [id number]/DID#: [id number] Authenticated by Fabián Childs MD On 03/23/2019 09:28:38 AM at 0928 PATIENT NAME: JAMIA DANIELLE [id number]:39:00Y.[id number] lable for patient bfxfEDKXLBAUBSLVQB0056-82-53Z70:29:10 [facility] 15:12:00 [id number] bRDxM15K0cGxC7J5ryP124i65ulmP 6ymcM/E90RlMBQdc0BwbXVG4Tiz+u0GHRk7722-53-50A91:1 2:00 [facility]Clinical NoteREPORT#:[id number] REPORT STATUS: SignedDATE:03/17/19 TIME: 1511 PATIENT: JAMIA DANIELLE UNIT #: [id number]#: [id number] [facility] [birth year] AGE: 73 SEX: M ATTEND: Fabián Childs MDADM AUTHOR: Yuriy Delgado MD * ALL edits or amendments must be made on the electronic/computer document * Clinical NoteNote:APMS : 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 NORCO AND IVP DILAUDID FOR PAIN PRN Portions of this section were scribed by Pinky Bond on 03/17/19 at 1512 at 1604 RPT #:[id number] OF REPORT CLClinical thyq2664-14-00N88:12:00Y.[id number] able for patient emtgPHXENESQNTMEJT0743-37-00B33:04:38 [facility] 2019-03-17 15:05:00 TRbasofzabx38783878u N7wjoXcZjLhoolc8y5haNuodY0kaq ZSWu9mTS1n7nSAdiDSaQAKgWt6F6Qtv4eA6050-83-99R71:0 5:00 [facility] ([facility])Brief Op NoteREPORT#:[id number] REPORT STATUS: SignedDATE:03/17/19 TIME: 1505 PATIENT: JAMIA DANIELLE UNIT #: [id number]#: [id number] ROOM/BED: 998-11DOB: [birth year] AGE: 73 SEX: M ATTEND: Fabián Childs MDADM AUTHOR: Fabián Childs MD * ALL edits or amendments must be made on the electronic/computer document * Op/Inv Proc Note - BriefPre-procedure diagnosis:Right rotator cuff arthropathyPost-procedure diagnosis: same as pre procedure dxProcedures performed:Right reverse shoulder arthroplastyPrimary Surgeon:TejAssistant(s): Beverly BellFindings:Right rotator cuff arthropathyComplications: noneEstimated blood loss in ml's: 250Specimens removed/altered: noneDrain(s): hemovac at 1506 RPT #:[id number] OF REPORT OPOperative mrgrkb3222-75-69W08:05:00Y.[id number] ilable for patient xwurVREBZHLYQDZRMX6341-08-54M22:07:08 [facility] 2019-03-01 13:20:00 [id number] Cy6D3d7D/cnWclAg84Nm24plZEI8f NycPDx0OOJ1gcnQNB+jyduEfBhxaRhh5Z80990-61-03F09:2 0:[id number] [facility] [place] [address] PATIENT NAME: JAMIA DANIELLE ADMIT DATE: ACCOUNT NO: [id number] ROOM NO: AGE: 73 REPORT TYPE: ELECTROCARDIOGRAM SEX: M ADMITTING PHYSICIAN:Fabián Childs MD ATTENDING PHYSICIAN:Fabián Childs MD Order:[id number] Reason : PRE OP CLEARANCE HTN Test Date/Time Stamp:ThuMar 01 2019 13:20:35Blood Pressure : / mmHGVent. Rate : 076 BPM Atrial Rate : 076 BPM P-R Int : 152 ms QRS Dur : 078 ms QT Int : 360 ms P-R-T Axes : 067 051 073 degrees QTc Int : 405 ms Normal sinus rhythmNormal ECGNo previous ECGs availableConfirmed by LYNN RYAN MD ([id number]) on 03/11/2019 7:57:52 PM Referred By: Fabián Childs Confirmed by:LYNN RYAN MD at 1958 PATIENT NAME: JAMIA DANIELLE .[id number] AVAvailable for patient iskvGMULHBOLWTBJZA6390-57-35V81:59:24 [facility]
[2024-04-19] MEDS ORDERED: NA CHLORIDE 0.9% 1,000 ML ONE (16:49)
[2024-04-19] MEDS ORDERED: CEFTRIAXONE 1000 MG/VIAL ONE (16:49)
[2024-04-19 16:57] LABS: Protime INR 1.38
[2024-04-19 17:20] LABS: Specific Gravity > 1.030 (1.005-1.030); Sqamous Epithelial <5 /HPF (None Seen); Urine Bacteria None Seen /HPF (<20); Urine Bilirubin NEGATIVE (Negative); Urine Blood 2+ (Negative); Urine Clarity Clear (Clear); Urine Color Light-Yellow (Yellow); Urine Culture Reflex Order NOT NEEDED; Urine Glucose 4+ (Over) (Negative); Urine Ketones TRACE (Negative); Urine Microscopic Reflex YN ORDER UMIC; Urine Mucus Slight /HPF (None Seen); Urine Nitrite 1+ (Negative); Urine Protein 1+ (Negative); Urine RBC <5 /HPF (None Seen); Urine Urobilinogen Normal (Normal); Urine WBC <5 /HPF (<5); Urine WBC Clump Rare /HPF (None Seen); Urine pH 6.5 (5.0-7.0)
[2024-04-19 17:22] LABS: Albumin 3.7 g/dL (3.4-5.0); Anion Gap 10.8 mEq/L (5.0-15.0); Bilirubin Direct 0.2 mg/dL (0-0.2); Bilirubin Indirect, Calculated 0.7 mg/dL (0.2-0.8); Bilirubin Total 0.9 mg/dL (0.2-1.0); Globulin 3.8 g/dL (2.3-3.5); Potassium 3.8 mEq/L (3.5-5.1); Protein, Total 7.5 g/dL (6.4-8.2); Troponin High Sensitivity 6.5 pg/mL (<58.9)
--- NOTE | 2024-04-19 17:22 | RAD REPORT ---
EXAM DESCRIPTION: CT - Head C Spine Cap Vilma Munoz - 04/19/2024 4:52 pm CLINICAL HISTORY: Dizziness neck pain. Chest and abdominal. Urinary incontinence TECHNIQUE: Computed axial tomography of head, neck, chest, abdomen and pelvis obtained. IV and oral contrast not requested. Coronal and sagittal reconstruction performed. All CT scans are performed using dose optimization technique as appropriate and may include automated exposure control or mA/KV adjustment according to patient size. COMPARISON: CT chest 2018 FINDINGS: An intracranial bleed is not seen. The ventricles are normal in caliber. An extra-axial fluid collection is not noted. Fluid within the sinuses/mastoids is not seen. A cervical fracture is not seen. No dislocation is noted. Marked spondylosis cervical spine. Mild pos terior subluxation C3 on C4 and C4 on C5. Central and foraminal stenosis cervical spine The evaluation of mediastinum, radha, vessels, solid organs and bowel are limited secondary to the lac k of contrast administration. Lungs are clear. No mediastinal or hilar lymphadenopathy. Coronary arterial calcifications No pleural effusion. No pericardial Cholelithiasis. Gallbladder wall is not thickened. Multiple, bilateral renal calculi. No hydronephrosis. 2.5 centimeter low-density mass left kidney non specific without IV contrast but probably a cyst. Mild stranding adjacent to the bladder Liver, spleen, pancreas and adrenals grossly normal Mild anterior subluxation of L5 on S1. Spondylolysis L5. Moderate spondylosis involves spine. This re sults in spinal stenosis Mild prostatic enlargement IMPRESSION: No acute intracranial abnormality is seen. A cervical fracture is not visualized. If the patient continues to have symptoms to suggest intracran ial/spinal cord pathology MRI be recommended Cholelithiasis Multiple, bilateral nonobstructing renal calculi Mild stranding adjacent to the bladder may indicate inflammation
[2024-04-19 17:29] LABS: SARS-CoV-2 Antigen CONTROL BLUE LINE VIS/BG OK; SARS-CoV-2 Antigen Rapid Res Negative (Negative)
--- NOTE | 2024-04-19 17:35 | RAD REPORT ---
EXAM DESCRIPTION: [place] Single View04/19/2024 5:18 pm CLINICAL HISTORY: cough COMPARISON: none FINDINGS: The lungs appear clear of acute infiltrate. The heart is normal size IMPRESSION: No acute abnormalities displayed
[2024-04-19 17:38] LABS: Absolute Lymphocytes (CBC) 0.5 K/uL (0.7-4.9); Absolute Monocytes 1.5 K/uL (0.1-1.3); Absolute Neutrophil 7.3 K/uL (1.8-8.0); Basophils % 0.3 % (0-1.3); Eosinophils % 0.1 % (0-4.4); Hematocrit 51.4 % (39.6-49.0); Hemoglobin 16.8 g/dL (13.6-17.9); Lymphocytes % 5.7 % (15.3-44.8); MCH 28.9 pg (27.0-35.0); MCHC 32.7 g/dL (32.0-36.0); MCV 88.5 fL (80-100); MPV 7.8 fL (7.6-11.3); Monocytes % 16.3 % (3.3-12.3); Neutrophils % 77.6 % (41.7-73.7); Platelets 121 thou/uL (152-406); RBC Red Blood Cell Count 5.81 M/uL (4.33-5.43); Red Cell Distribution Width 15.5 % (12.1-15.2)
--- NOTE | 2024-04-19 18:04 | ER ---
Nurse's Notes [facility] Name: Dexter Matamoros Age: 78 yrs Sex: Male : 1945 Arrival Date: 04/19/2024 Time: 15:19 Bed 6 Private MD: Diagnosis: UTI/ Urinary tract infection, site not specified;Fever, unspecified;Dehydration;Sepsis, unspecified organism;Acute prostatitis;Tachycardia, unspecified;Pain in left knee Presentation: 04/19 15:36 Chief complaint: EMS states: patient has been having urinary incontinence for a few ap3 days. patient reports that he has also feeling as though he was drunk today. patient reports multiple falls today. Coronavirus screen: Client presents with at least one sign or symptom that may indicate coronavirus-19. Ebola Screen: No symptoms or risks identified at this time. Initial Sepsis Screen:. Risk Assessment: Do you want to hurt yourself or someone else? Patient reports no desire to harm self or others. Onset of symptoms is unknown. 15:36 Method Of Arrival: EMS: [facility] ap3 15:36 Acuity: BRINDA 3 ap3 Triage Assessment: 15:38 General: Appears in no apparent distress. Behavior is calm, cooperative, appropriate ap3 for age. General: Reports fatigue for. Pain: Denies pain. Neuro: Level of Consciousness is awake, alert, obeys commands, Oriented to person, place, time, situation, Reports weakness feeling like he is drunk. Cardiovascular: Patient's skin is warm and dry. Respiratory: Airway is patent Respiratory effort is even, unlabored, Respiratory pattern is regular, symmetrical. Historical: - Allergies: 15:37 PENICILLINS; ap3 15:37 bee stings; ap3 15:37 Sulfa (Sulfonamide Antibiotics); ap3 15:37 IV contrast; ap3 - Immunization history:: Client reports receiving the 2nd dose of the Covid vaccine, Flu vaccine is up to date. - Infectious Disease History:: Denies. - Social history:: Smoking status: Patient denies any tobacco usage or history of. Screenin:45 [facility] ED Fall Risk Assessment (Adult) History of falling in the last 3 months, ld1 including since admission No falls in past 3 months (0 pts). Abuse screen: Denies threats or abuse. Denies injuries from another. Nutritional screening: No deficits noted. Tuberculosis screening: No symptoms or risk factors identified. Assessment: 16:45 General: Appears in no apparent distress. comfortable, Behavior is calm, cooperative, ld1 appropriate for age. Pain: Complains of pain in right leg Pain does not radiate. Pain currently is 8 out of 10 on a pain scale. Quality of pain is described as throbbing. Neuro: Level of Consciousness is awake, alert, obeys commands, Oriented to person, place, time, situation. Cardiovascular: Capillary refill < 3 seconds Patient's skin is warm and dry. Rhythm is sinus tachycardia. Respiratory: Airway is patent Respiratory effort is even, unlabored. GI: Abdomen is round non-distended. : No signs and/or symptoms were reported regarding the genitourinary system. EENT: No signs and/or symptoms were reported regarding the EENT system. Derm: No signs and/or symptoms reported regarding the dermatologic system. Derm: No signs and/or symptoms reported regarding the dermatologic system. Derm: No signs and/or symptoms reported regarding the dermatologic system. Musculoskeletal: No signs and/or symptoms reported regarding the musculoskeletal system. 19:15 Reassessment: Patient appears in no apparent distress at this time. Patient and/or km8 family updated on plan of care and expected duration. Pain level reassessed. Patient is alert, oriented x 3, equal unlabored respirations, skin warm/dry/pink. General: Appears in no apparent distress. comfortable, Behavior is calm, cooperative, appropriate for age. Neuro: Level of Consciousness is awake, alert, obeys commands, Oriented to person, place, time, situation. Cardiovascular: Denies chest pain, shortness of breath, Patient's skin is warm and dry. Respiratory: Airway is patent Respiratory effort is even, unlabored, Respiratory pattern is regular, symmetrical. Derm: Skin is intact, is healthy with good turgor, Skin is dry, Skin is pink, warm \T\ dry. normal, Skin temperature is warm. 20:15 Reassessment: Patient appears in no apparent distress at this time. No changes from km8 previously documented assessment. Patient and/or family updated on plan of care and expected duration. Pain level reassessed. Patient is alert, oriented x 3, equal unlabored respirations, skin warm/dry/pink. 21:15 Reassessment: Patient appears in no apparent distress at this time. No changes from km8 previously documented assessment. Patient and/or family updated on plan of care and expected duration. Pain level reassessed. Patient is alert, oriented x 3, equal unlabored respirations, skin warm/dry/pink. Vital Signs: 15:36 Weight 117.03 kg; Height 6 ft. 0 in. ; ap3 16:39 Temp 97.5; ld1 16:45 BP 131 / 80; Pulse 123; Resp 20; Pulse Ox 98% on R/A; ld1 17:10 BP 99 / 68; Pulse 123; Resp 18; Pulse Ox 94% on R/A; ld1 19:00 BP 113 / 69; Pulse 113; Resp 20; Pulse Ox 95% on 3 lpm NC; km8 19:30 BP 119 / 73; Pulse 119; Resp 20; Pulse Ox 95% on 3 lpm NC; km8 20:00 BP 122 / 61; Pulse 115; Resp 20; Pulse Ox 94% on 3 lpm NC; km8 20:30 BP 121 / 65; Pulse 115; Resp 20; Pulse Ox 95% on 3 lpm NC; km8 21:00 BP 112 / 69; Pulse 115; Resp 22; Pulse Ox 95% on 3 lpm NC; km8 21:30 BP 127 / 67; Pulse 111; Resp 20; Pulse Ox 96% on 3 lpm NC; km8 15:36 Body Mass Index 34.99 (117.03 kg, 182.88 cm) ap3 [place] Coma Score: 17:54 Eye Response: spontaneous(4). Motor Response: obeys commands(6). Verbal Response: arron oriented(5). Total: 15. ED Course: 15:36 Patient arrived in ED. ap3 15:37 Triage completed. ap3 15:39 Arm band placed on right wrist. ap3 15:48 Uriel Mosley MD is Attending Physician. arron 16:44 Flu Sent. ld1 16:44 SARS RAPID Sent. ld1 16:44 Urinalysis w/ reflexes Sent. ld1 16:44 Lactate w/ 2H reflex if indic. Sent. ld1 16:45 Patient has correct armband on for positive identification. Placed in gown. Bed in low ld1 position. Call light in reach. Side rails up X2. 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 Pulse ox on. NIBP on. Door closed. Noise minimized. Warm blanket given. 16:45 Blood Culture Adult (2) Sent. ld1 16:45 Inserted saline lock: 22 gauge in right antecubital area, using aseptic technique. ld1 Blood collected. 16:45 No provider procedures requiring assistance completed. ld1 16:47 Tanisha Goodwin, RN is Primary Nurse. ld1 16:53 CT Traumagram (Head C Spine CAP wo con) In Process Unspecified. EDMS 17:20 XRAY Chest (1 view) In Process Unspecified. EDMS 18:02 Noah Beckman MD is Hospitalizing Provider. [facility] 19:26 Knee Left 3 View XRAY In Process Unspecified. EDMS 19:26 XRAY Hip LEFT 2 view In Process Unspecified. EDMS 19:55 Primary Nurse role handed off by Tanisha Goodwin, GRETEL as6 21:40 Nilda Hart RN is Primary Nurse. km8 21:40 Provided Education on: admission process. km8 21:42 Patient admitted, IV remains in place. 8 Administered Medications: 17:09 Drug: NS 0.9% IV 500 ml IV at bolus once Route: IV; Rate: bolus; Site: right ld1 antecubital; 19:00 Follow up: IV Status: Completed infusion; IV Intake: 500ml [facility] 17:09 Drug: Rocephin IV 1 grams IV at per protocol once; Given slow IV push per pharmacy ld1 instructions Route: IV; Rate: per protocol; Site: right antecubital; 19:00 Follow up: IV Status: Completed infusion [facility] 18:31 Drug: Meropenem IV 1 grams IV at per protocol once; (mix in NS 100 mL) Route: IV; Rate: ld1 per protocol; Site: right antecubital; 20:00 Follow up: IV Status: Completed infusion; IV Intake: 100ml [facility] 18:31 Drug: NS 0.9% IV 1000 ml IV at 1 bolus Per protocol; 1000 mL bolus Route: IV; Rate: 1 ld1 bolus; Site: right antecubital; 19:00 Follow up: IV Status: Completed infusion; IV Intake: 1000ml [facility] 18:31 Drug: NS 0.9% IV 1000 ml IV at 1 bolus Per protocol; 1000 mL bolus Route: IV; Rate: 1 ld1 bolus; Site: right antecubital; 19:00 Follow up: IV Status: Completed infusion; IV Intake: 1000ml km8 18:31 Drug: LevOfloxacin PO 500 mg PO once Route: PO; ld1 19:30 Follow up: Response: No adverse reaction km8 18:56 Drug: Ondansetron IVP 4 mg IVP once; over 2 minutes Route: IVP; Site: right antecubital;ld1 19:30 Follow up: Response: No adverse reaction km8 Medication: 21:42 VIS not applicable for this client. km8 Intake: 19:00 IV: 500ml; Total: 500ml. km8 19:00 IV: 1000ml; Total: 1500ml. km8 19:00 IV: 1000ml; Total: 2500ml. km8 20:00 IV: 100ml; Total: 2600ml. km8 Outcome: 18:04 Decision to Hospitalize by Provider. arron 22:21 Admitted to Med/surg accompanied by tech, via wheelchair, room 401, with oxygen, with km8 chart, 22:21 Condition: stable 22:21 Instructed on the need for admit, Demonstrated understanding of instructions, 22:22 Patient left the ED. km8 Signatures: Dispatcher [employer] EDMS Uriel Mosley MD MD cha Prokisch, Amanda RN RN karina3 Tanisha Goodwin RN RN olive1 Lalo Guevara RN RN as6 Nilda Hart, RN RN km8
--- NOTE | 2024-04-19 18:05 | EDPHYS ---
Physician Documentation [facility] Name: Dexter Matamoros Age: 78 yrs Sex: Male : 1945 Arrival Date: 04/19/2024 Time: 15:19 Bed 6 Private MD: MEGAN Physician Uriel Mosley HPI: 04/19 17:53 This 78 yrs old Male presents to ER via EMS with complaints of Urinary arron Incontinence. 17:53 The patient presents with urinary symptoms, dysuria, frequency, hematuria, urgency, arron urinary retention. Onset: The symptoms/episode began/occurred 3 day(s) ago. Modifying factors: The symptoms are alleviated by. Historical: - Allergies: 15:37 PENICILLINS; ap3 15:37 bee stings; ap3 15:37 Sulfa (Sulfonamide Antibiotics); ap3 15:37 IV contrast; ap3 - Immunization history:: Client reports receiving the 2nd dose of the Covid vaccine, Flu vaccine is up to date. - Infectious Disease History:: Denies. - Social history:: Smoking status: Patient denies any tobacco usage or history of. ROS: 17:54 Eyes: Negative for injury, pain, redness, and discharge, ENT: Negative for injury, arron pain, and discharge, Neck: Negative for injury, pain, and swelling, Cardiovascular: Negative for chest pain, palpitations, and edema, Respiratory: Negative for shortness of breath, cough, wheezing, and pleuritic chest pain, Abdomen/GI: Negative for abdominal pain, nausea, vomiting, diarrhea, and constipation, Back: Negative for injury and pain, MS/Extremity: Negative for injury and deformity, Skin: Negative for injury, rash, and discoloration, Neuro: Negative for headache, weakness, numbness, tingling, and seizure, Psych: Negative for depression, anxiety, suicide ideation, homicidal ideation, and hallucinations, Allergy/Immunology: Negative for hives, rash, and allergies, Endocrine: Negative for neck swelling, polydipsia, polyuria, polyphagia, and marked weight changes, Hematologic/Lymphatic: Negative for swollen nodes, abnormal bleeding, and unusual bruising, 17:54 Constitutional: Positive for body aches, chills, fatigue, fever, malaise, 17:54 : Positive for urinary symptoms, urinary frequency, small amounts, burning with urination, difficulty urinating, foul smelling urine, 17:54 Neuro: Positive for altered mental status, dizziness, headache, weakness, Exam: 17:54 Head/Face: Normocephalic, atraumatic. Eyes: Pupils equal round and reactive to light, arron extra-ocular motions intact. Lids and lashes normal. Conjunctiva and sclera are non-icteric and not injected. Cornea within normal limits. Periorbital areas with no swelling, redness, or edema. ENT: Nares patent. No nasal discharge, no septal abnormalities noted. Tympanic membranes are normal and external auditory canals are clear. Oropharynx with no redness, swelling, or masses, exudates, or evidence of obstruction, uvula midline. Mucous membranes moist. Neck: Trachea midline, no thyromegaly or masses palpated, and no cervical lymphadenopathy. Supple, full range of motion without nuchal rigidity, or vertebral point tenderness. No Meningismus. Chest/axilla: Normal chest wall appearance and motion. Nontender with no deformity. No lesions are appreciated. Respiratory: Lungs have equal breath sounds bilaterally, clear to auscultation and percussion. No rales, rhonchi or wheezes noted. No increased work of breathing, no retractions or nasal flaring. Back: No spinal tenderness. No costovertebral tenderness. Full range of motion. Male : Normal genitalia with no discharge or lesions. Skin: Warm, dry with normal turgor. Normal color with no rashes, no lesions, and no evidence of cellulitis. MS/ Extremity: Pulses equal, no cyanosis. Neurovascular intact. Full, normal range of motion. Neuro: Awake and alert, GCS 15, oriented to person, place, time, and situation. Cranial nerves II-XII grossly intact. Motor strength 5/5 in all extremities. Sensory grossly intact. Cerebellar exam normal. Normal gait. Psych: Awake, alert, with orientation to person, place and time. Behavior, mood, and affect are within normal limits. 17:54 Constitutional: The patient appears febrile, smells of urine, 17:54 Cardiovascular: Rate: tachycardic, actual rate is 120 bpm, Rhythm: regular, Pulses: Pulses are 4+ in bilateral radial, brachial, femoral, popliteal, posterior tibial and and dorsalis pedis arteries.. JVD: is not appreciated, 17:54 ECG was reviewed by the Attending Physician. 17:54 Musculoskeletal/extremity: Circulation is intact in all extremities. Sensation intact. Compartment Syndrome exam of affected extremity: is normal. Weight bearing: is unable to bear weight, DVT Exam: negative Homans' sign noted on exam, no appreciated bluish discoloration, no erythema, no increased warmth, pain, tenderness, that is moderate, of the left knee, 17:54 Neuro: Orientation: is normal, appropriate for stated age, no acute changes, Mentation: is normal, appropriate for stated age, no acute changes, Memory: is normal, appropriate for stated age, no acute changes, Cranial nerves: grossly normal, is grossly normal based on the patient's age, no acute changes, Motor: moves all fours, strength is 5/5 in the right arm, left arm, right leg and left leg, Sensation: no obvious gross deficits, appropriate no acute changes, Gait: not tested. seizure activity, is not displayed by the patient, Vital Signs: 15:36 Weight 117.03 kg; Height 6 ft. 0 in. ; ap3 16:39 Temp 97.5; ld1 16:45 BP 131 / 80; Pulse 123; Resp 20; Pulse Ox 98% on R/A; ld1 17:10 BP 99 / 68; Pulse 123; Resp 18; Pulse Ox 94% on R/A; ld1 19:00 BP 113 / 69; Pulse 113; Resp 20; Pulse Ox 95% on 3 lpm NC; km8 19:30 BP 119 / 73; Pulse 119; Resp 20; Pulse Ox 95% on 3 lpm NC; km8 20:00 BP 122 / 61; Pulse 115; Resp 20; Pulse Ox 94% on 3 lpm NC; km8 20:30 BP 121 / 65; Pulse 115; Resp 20; Pulse Ox 95% on 3 lpm NC; km8 21:00 BP 112 / 69; Pulse 115; Resp 22; Pulse Ox 95% on 3 lpm NC; km8 21:30 BP 127 / 67; Pulse 111; Resp 20; Pulse Ox 96% on 3 lpm NC; km8 15:36 Body Mass Index 34.99 (117.03 kg, 182.88 cm) ap3 [place] Coma Score: 17:54 Eye Response: spontaneous(4). Motor Response: obeys commands(6). Verbal Response: arron oriented(5). Total: 15. MDM: 15:48 Patient medically screened. arron 17:59 Differential diagnosis: urinary tract infection. Data reviewed: vital signs, nurses [facility] notes, lab test result(s), EKG, radiologic studies. Consideration of Admission/Observation Patient was admitted/placed on observation. Escalation of care including admission/observation considered. I considered the following discharge prescriptions or medication management in the emergency department Medications were administered in the Emergency Department. See MAR. Independent interpretation of the following test(s) in the Emergency Department EKG: See my EKG interpretation above CT Scan: My interpretation is ct traumagram. Test considered but Not performed: Ultrasound no abd usg. Historians other than the Patient: Spouse/Significant Other: and son. Care significantly affected by the following chronic conditions: Hypertension. Counseling: I had a detailed discussion with the patient and/or guardian regarding the historical points, exam findings, and any diagnostic results supporting the discharge/admit diagnosis, lab results, radiology results, the need for further work-up and treatment in the hospital. 04/19 15:52 Order name: Basic Metabolic Panel; Complete Time: 17:46 [facility] 04/19 15:52 Order name: CBC with Diff; Complete Time: 18:01 [facility] 04/19 15:52 Order name: LFT's; Complete Time: 17:46 [facility] 04/19 15:52 Order name: Magnesium; Complete Time: 17:46 [facility] 04/19 15:52 Order name: NT PRO-BNP; Complete Time: 17:46 [facility] 04/19 15:52 Order name: PT-INR; Complete Time: 17:46 [facility] 04/19 15:52 Order name: Troponin HS; Complete Time: 17:46 [facility] 04/19 15:52 Order name: Blood Culture Adult (2) [facility] 04/19 15:52 Order name: Lactate w/ 2H reflex if indic.; Complete Time: 17:46 [facility] 04/19 15:52 Order name: Urinalysis w/ reflexes; Complete Time: 17:46 [facility] 04/19 15:52 Order name: SARS RAPID; Complete Time: 17:46 [facility] 04/19 15:52 Order name: Flu; Complete Time: 17:46 [facility] 04/19 20:40 Order name: Thyroid Stimulating Hormone EDMS 04/19 20:40 Order name: CBC with Automated Diff EDMS 04/19 20:40 Order name: CBC with Automated Diff EDMS 04/19 20:40 Order name: Comprehensive Metabolic Panel [facility] 04/19 20:40 Order name: Comprehensive Metabolic Panel [facility] 04/19 15:52 Order name: XRAY Chest (1 view); Complete Time: 17:46 [facility] 04/19 15:52 Order name: CT Traumagram (Head C Spine CAP wo con); Complete Time: 17:46 [facility] 04/19 17:52 Order name: Knee Left [address] [facility] 04/19 18:35 Order name: XRAY Hip LEFT 2 view [facility] 04/19 15:52 Order name: EKG; Complete Time: 15:53 [facility] 04/19 20:40 Order name: CONS Physician Consult [facility] 04/19 15:52 Order name: Cardiac monitoring; Complete Time: 16:45 [facility] 04/19 15:52 Order name: EKG - Nurse/Tech; Complete Time: 16:45 [facility] 04/19 15:52 Order name: IV Saline Lock; Complete Time: 16:45 [facility] 04/19 15:52 Order name: Labs collected and sent; Complete Time: 16:45 [facility] 04/19 15:52 Order name: O2 Per Protocol; Complete Time: 15:54 [facility] 04/19 15:52 Order name: O2 Sat Monitoring; Complete Time: 15:54 [facility] 04/19 17:48 Order name: IV Saline Lock - Large Bore; Complete Time: 18:24 [facility] EC:54 Rate is 123 beats/min. Rhythm is regular. QRS [place] is Normal. TX interval is normal. QT arron interval is normal. No Q waves. T waves are Normal. No ST changes noted. Clinical impression: Sinus tachycardia and No evidence of ischemia. Interpreted by me. Reviewed by me. Administered Medications: 17:09 Drug: NS 0.9% IV 500 ml IV at bolus once Route: IV; Rate: bolus; Site: right ld1 antecubital; 19:00 Follow up: IV Status: Completed infusion; IV Intake: 500ml 17:09 Drug: Rocephin IV 1 grams IV at per protocol once; Given slow IV push per pharmacy ld1 instructions Route: IV; Rate: per protocol; Site: right antecubital; 19:00 Follow up: IV Status: Completed infusion [facility] 18:31 Drug: Meropenem IV 1 grams IV at per protocol once; (mix in NS 100 mL) Route: IV; Rate: ld1 per protocol; Site: right antecubital; 20:00 Follow up: IV Status: Completed infusion; IV Intake: 100ml 18:31 Drug: NS 0.9% IV 1000 ml IV at 1 bolus Per protocol; 1000 mL bolus Route: IV; Rate: 1 ld1 bolus; Site: right antecubital; 19:00 Follow up: IV Status: Completed infusion; IV Intake: 1000ml 18:31 Drug: NS 0.9% IV 1000 ml IV at 1 bolus Per protocol; 1000 mL bolus Route: IV; Rate: 1 ld1 bolus; Site: right antecubital; 19:00 Follow up: IV Status: Completed infusion; IV Intake: 1000ml 8 18:31 Drug: LevOfloxacin PO 500 mg PO once Route: PO; ld1 19:30 Follow up: Response: No adverse reaction 8 18:56 Drug: Ondansetron IVP 4 mg IVP once; over 2 minutes Route: IVP; Site: right antecubital;ld1 19:30 Follow up: Response: No adverse reaction 8 Disposition Summary: 04/19/24 18:04 Hospitalization Ordered Notes: Hospitalization Status: Inpatient Admission arron Provider: Noah Beckman cha Location: Telemetry/MedSurg (Inpatient) arron Condition: Fair arron Problem: new arron Symptoms: have improved arron Bed/Room Type: Standard [facility] Room Assignment: 401(04/19/24 20:50) rv1 Diagnosis - UTI/ Urinary tract infection, site not specified arron - Fever, unspecified arron - Dehydration arron - Sepsis, unspecified organism arron - Acute prostatitis arron - Tachycardia, unspecified arron - Pain in left knee arron Forms: - Medication Reconciliation Form arron - SBAR form arron - Leadership Thank You Letter arron Signatures: Dispatcher [employer] Uriel Merrill MD MD cha Prokisch, Amanda RN RN ap3 Tanisha Goodwin RN RN ld1 Hannah Hernandez rv1 Nilda Hart RN km8 Corrections: (The following items were deleted from the chart) 15:53 15:53 BASIC METABOLIC PANEL+C.LAB.BRZ ordered. EDMS EDMS 15:53 15:53 CBC+H.LAB.BRZ ordered. EDMS EDMS 15:53 15:53 HEPATIC FUNCTION+C.LAB.BRZ ordered. EDMS EDMS 15:53 15:53 MAGNESIUM+C.LAB.BRZ ordered. EDMS EDMS 15:53 15:53 PROBNP+C.LAB.BRZ ordered. EDMS EDMS 15:53 15:53 PROTIME (+INR)+COAG.LAB.BRZ ordered. EDMS EDMS 15:53 15:53 Troponin High Sensitivity+C.LAB.BRZ ordered. EDMS EDMS 15:53 15:53 BLOOD CULTURE*+BA.LAB.BRZ ordered. EDMS EDMS 15:53 15:53 LACTATE+C.LAB.BRZ ordered. EDMS EDMS 15:53 15:53 Urinalysis+U.LAB.BRZ ordered. EDMS EDMS 15:53 15:53 SARS-COV-2 Antigen Rapid+I.LAB.BRZ ordered. EDMS EDMS 15:53 15:53 Influenza Screen (A \T\ B)+BA.LAB.BRZ ordered. EDMS EDMS 17:52 17:52 Knee Left 3 View+RAD.RAD.BRZ ordered. EDMS EDMS 20:50 18:04 arron rv1
[2024-04-19] MEDS ORDERED: Meropenem 1000 MG/VIAL IV ONE (18:18)
[2024-04-19] MEDS ORDERED: NA CHLORIDE 0.9% 2,000 ML ONE (18:18)
[2024-04-19] MEDS ORDERED: levoFLOXacin 250 MG TAB ONE (18:18)
[2024-04-19] MEDS ORDERED: ONDANSETRON 4 MG/2 ML VIAL ONE (18:54)
--- NOTE | 2024-04-19 19:48 | RAD REPORT ---
EXAM DESCRIPTION: RAD - Knee Left 3 View - 04/19/2024 7:24 pm CLINICAL HISTORY: Left knee pain FINDINGS: No fracture or dislocation is seen. Left knee prosthesis in place. No evidence loosening of the visualized prosthesis
--- NOTE | 2024-04-19 19:49 | RAD REPORT ---
EXAM DESCRIPTION: RAD - Hip Left 2 View - 04/19/2024 7:25 pm CLINICAL HISTORY: Left hip pain status post injury FINDINGS: No fracture or dislocation is seen. Osteoporosis If the patient continues to have symptoms to suggest an occult fracture then a followup plain film se mo in 1 week would be recommended
--- NOTE | 2024-04-19 20:30 | P.HP ---
Certification for Inpatient Patient admitted to: Observation With expected LOS: <2 Midnights Patient will require the following post-hospital care: None Practitioner: I am a practitioner with admitting privileges, knowledge of patient current condition, hospital course, and medical plan of care. Services: Services provided to patient in accordance with Admission requirements found in Title 42 Section 412.3 of the Code of Federal Regulations Patient History Date of Service: 04/19/24 Reason for admission: Dysuria, fall History of Present Illness: 78-year-old male with past medical history of DM/HLD/hypothyroidism/prior history of pulmonary embolism/hypertension, obesity, CKD who presented because of dysuria since the last 1 days with pain with voiding. He denies any flank pain. He denies any fever or chills. He denies any hematuria. He states he was going to see his manager zone Dr. Stratton today when he stumbled and fell. He states he has been unable to lift his left leg since then. He is a very poor historian and his family at bedside also not helping with history. He does not have his medications with him and so most history is unable to be obtained well. Arrival in the ED vital signs were stable. He had a history of the chest abdomen and pelvics done with findings of 2.5 cm left kidney mass worrisome for cyst, mild stranding around the bladder, mildly enlarged prostate, there was also noted L5-S1 spondylosis worrisome for spinal stenosis. No cervical fracture was noted. Laboratory workup was unremarkable creatinine 1.2, urinalysis was shows no leukocyte esterase or WBC. He has been admitted for presumed prostatitis and spinal stenosis symptoms - Past Medical/Surgical History -: HTN -: hld -: ckd - Family History Family History: Reviewed- Non-Contributory - Social History Smoking Status: Never smoker Smoking therapy provided: No Patient receptive to therapy: No Alcohol use: No CD- Drugs: No Caffeine use: No Place of Residence: Home Review of Systems 10-point ROS is otherwise unremarkable Physical Examination - Physical Exam General: Alert, In no apparent distress, Oriented x3, Obese HEENT: Atraumatic, Normocephalic, PERRLA Neck: Supple, 2+ carotid pulse no bruit Respiratory: Clear to auscultation bilaterally, Normal air movement Cardiovascular: Normal pulses, Regular rate/rhythm, Normal S1 S2 Gastrointestinal: Normal bowel sounds, Soft and benign, Non-distended, No ascites Musculoskeletal: No swelling Integumentary: No rashes, No breakdown Neurological: Normal speech, Normal strength at 5/5 x4 extr, Sensation intact, Abnormal strength (Reduced strength of left leg ) - Studies Laboratory Data (last 24 hrs) 04/19/24 04/19/24 04/19/24 16:40 16:40 16:40 WBC 9.50 Hgb 16.8 Hct 51.4 H Plt Count 121 L PT 15.0 H INR 1.38 Sodium 135 L Potassium 3.8 BUN 16 Creatinine 1.20 Glucose 178 H Magnesium 2.0 Total Bilirubin 0.9 AST 12 L ALT 28 Alkaline Phosphatase 66 Microbiology Data (last 24 hrs): 04/19/24 16:26 Nasopharnyx Influenza Type A Antigen Screen - Final 04/19/24 16:26 Nasopharnyx Influenza Type B Antigen Screen - Final Assessment and Plan - Problems (Diagnosis) (1) Left leg weakness Current Visit: Yes Status: Acute - Plan Impression Left leg weaknessmay be due to sciatica/spinal stenosis Presumed prostatitis Hypertension HLD DM Hypothyroidism HLD Plan Start gentle IV fluid hydration Start empirical antibiotics with Rocephin Follow urine culture despite urinalysis not consistent with UTI Pain control Consult neurology Dr. Brand for further evaluation of spinal stenosis present sciatica May need MRI of the lumbar spine but will defer BP control Obtain home meds We reevaluate patient and obtain further history from family Lovenox for DVT prophylaxis Insulin sliding scale with Accu-Chek Total time spent evaluation of greater than 60 minutes - Advance Directives Does patient have a Living Will: No Does patient have a Durable POA for Healthcare: No
[2024-04-19] MEDS ORDERED: ACETAMINOPHEN 500 MG TAB PO PRN (20:33)
[2024-04-19] MEDS ORDERED: MORPHINE 2 MG/ML SYR IV PRN (20:33)
[2024-04-19] MEDS ORDERED: ALBUTEROL 2.5 MG/3 ML NEB SOL NEB PRN (20:33)
[2024-04-19] MEDS ORDERED: HYDRALAZINE HCL 20 MG/ML VIAL IV PRN (20:37)
[2024-04-19] MEDS ORDERED: LORAZEPAM 0.5 MG TABLET PO PRN (20:37)
[2024-04-19 23:34] VITALS: O2SAT 96
[2024-04-20] MEDS ORDERED: MORPHINE 4 MG/ML SYR IV PRN ×2 (00:06→00:25)
[2024-04-20] MEDS ORDERED: LORAZEPAM 0.5 MG TABLET PO PRN (00:22)
[2024-04-20] MEDS: Oxycodone HCl/Acetaminophen 5/325 MG TAB PO PRN (00:37)
[2024-04-20] MEDS: NA CHLORIDE 0.9% 1,000 ML IV SCH (00:38)
[2024-04-20] MEDS: INSULIN REGULAR (HUMAN) 100 UNIT/ML SQ SCH ×2 (07:30)
[2024-04-20] MEDS: ENOXAPARIN 40 MG/0.4 ML SQ SCH (08:18)
[2024-04-20] MEDS: ASPIRIN EC 81 MG TAB PO SCH (08:18)
[2024-04-20] MEDS: CEFTRIAXONE 1,000 MG in NA CHLORIDE 0.9% 50 ML IVPB SCH (08:18)
[2024-04-20 08:22] LABS: Absolute Lymphocytes (CBC) 0.8 K/uL (0.7-4.9); Absolute Monocytes 1.1 K/uL (0.1-1.3); Absolute Neutrophil 4.3 K/uL (1.8-8.0); Basophils % 0.3 % (0-1.3); Eosinophils % 0.3 % (0-4.4); Hematocrit 46.3 % (39.6-49.0); Lymphocytes % 12.7 % (15.3-44.8); MCH 28.9 pg (27.0-35.0); MCHC 32.4 g/dL (32.0-36.0); MCV 89.4 fL (80-100); MPV 7.5 fL (7.6-11.3); Monocytes % 17.7 % (3.3-12.3); Platelets 99 thou/uL (152-406); RBC Red Blood Cell Count 5.19 M/uL (4.33-5.43)
[2024-04-20 08:42] LABS: Albumin 2.8 g/dL (3.4-5.0); Albumin/Globulin Ratio 0.8 (1.1-1.8); Anion Gap 9.1 mEq/L (5.0-15.0); Bilirubin Total 0.6 mg/dL (0.2-1.0); Globulin 3.5 g/dL (2.3-3.5); Potassium 4.1 mEq/L (3.5-5.1); Protein, Total 6.3 g/dL (6.4-8.2); Thyroid Stimulating Hormone 2.88 uIU/mL (0.358-3.740)
--- NOTE | 2024-04-20 09:03 | P.CNS ---
Date of Consult: 04/20/24 Reason for Consult: CKD Requesting Physician: Jay Ace Chief Complaint: Dysuria, fall History of Present Illness: 78-year-old male with past medical history of DM/HLD/hypothyroidism/prior history of pulmonary embolism/hypertension, obesity, CKD who presented because of dysuria since the last 1 days with pain with voiding. He denies any flank pain. He denies any fever or chills. He denies any hematuria. He states he was going to see his ct mri technologist Dr. Stratton today when he stumbled and fell. He states he has been unable to lift his left leg since then. He is a very poor historian and his family at bedside also not helping with history. He does not have his medications with him and so most history is unable to be obtained well. Arrival in the ED vital signs were stable. He had a history of the chest abdomen and pelvics done with findings of 2.5 cm left kidney mass worrisome for cyst, mild stranding around the bladder, mildly enlarged prostate, there was also noted L5-S1 spondylosis worrisome for spinal stenosis. No cervical fracture was noted. Laboratory workup was unremarkable creatinine 1.2, urinalysis was shows no leukocyte esterase or WBC. He has been admitted for presumed prostatitis and spinal stenosis symptoms. [id number] 17:53 This 78 yrs old Male presents to ER via EMS with complaints of Urinary arron Incontinence. 17:53 The patient presents with urinary symptoms, dysuria, frequency, hematuria, urgency, arron urinary retention. Onset: The symptoms/episode began/occurred 3 day(s) ago. Modifying factors: The symptoms are alleviated by. Allergies Penicillins Allergy (Verified 04/19/24 23:16) Itching/Hives/Rash Sulfa (Sulfonamide Antibiotics) Adverse Reaction (Verified 04/19/24 23:16) Shortness of breath "contrast dye" Allergy (Uncoded 04/19/24 23:17) unknown bee sting Allergy (Uncoded 04/19/24 23:17) swelling Home medications list reviewed: Yes Home Medications: Allopurinol 100 mg PO DAILY 04/20/24 Apixaban [Eliquis] 5 mg PO BID 04/20/24 Cyanocobalamin (Vitamin B-12) [Vitamin B-12] 1,000 mcg PO DAILY 04/20/24 Empagliflozin [Jardiance] 25 mg PO DAILY 04/20/24 Gabapentin 2 tab PO BID 04/20/24 Levothyroxine [Synthroid*] 75 mcg PO DAILY 04/20/24 Lisinopril [Zestril] 5 mg PO BEDTIME 04/20/24 Metformin HCl [Glucophage*] 850 mg PO BID 04/20/24 Metoprolol Tartrate 25 mg PO BID 04/20/24 Pravastatin Sodium 40 mg PO BEDTIME 04/20/24 Semaglutide [Ozempic] 0.5 mg SQ SEECOM 04/20/24 Tamsulosin [Flomax*] 0.4 mg PO BEDTIME 04/20/24 - Past Medical/Surgical History Diabetic: Yes -: HTN -: HLD -: CKD with Proteinuria (Dr. Stratton/ [facility]) -: DM II with Polyneuropathy -: BPH with LUTS -: Left knee surgery X3 -: right shoulder -: carpal tunnel bilateral - Family History Father Medical History: Hypertension, GI disease, Cancer Notes: cancer of stomach and intestines - Social History Alcohol use: No CD- Drugs: No Caffeine use: Yes Place of Residence: Home Review of Systems 10-point ROS is otherwise unremarkable Cardiovascular: Edema Musculoskeletal: Back Pain, Leg Pain Physical Examination Temp Pulse Resp BP Pulse Ox 97.4 F 82 18 121/71 96 04/20/24 08:00 04/20/24 08:00 04/20/24 08:00 04/20/24 08:00 04/20/24 08:00 General: In no apparent distress, Oriented x3, Cooperative HEENT: Atraumatic Neck: Supple Respiratory: Normal air movement Cardiovascular: Regular rate/rhythm, Edema Gastrointestinal: Soft and benign, Non-distended Musculoskeletal: No clubbing, No contractures Integumentary: No rashes, No cyanosis, Other (Venous Stasis) Neurological: Normal speech Laboratory Data (last 24 hrs) 04/19/24 04/19/24 04/19/24 16:40 16:40 16:40 WBC 9.50 Hgb 16.8 Hct 51.4 H Plt Count 121 L PT 15.0 H INR 1.38 Sodium 135 L Potassium 3.8 BUN 16 Creatinine 1.20 Glucose 178 H Magnesium 2.0 Total Bilirubin 0.9 AST 12 L ALT 28 Alkaline Phosphatase 66 Imagings Data: EXAM DESCRIPTION: [place] Single View04/19/2024 5:18 pm CLINICAL HISTORY: cough COMPARISON: none FINDINGS: The lungs appear clear of acute infiltrate. The heart is normal size IMPRESSION: No acute abnormalities displayed EXAM DESCRIPTION: CT - Head C Spine Cap Vilma Munoz - 04/19/2024 4:52 pm CLINICAL HISTORY: Dizziness neck pain. Chest and abdominal. Urinary incontinence TECHNIQUE: Computed axial tomography of head, neck, chest, abdomen and pelvis obtained. IV and oral contrast not requested. Coronal and sagittal reconstruction performed. All CT scans are performed using dose optimization technique as appropriate and may include automated exposure control or mA/KV adjustment according to patient size. COMPARISON: CT chest 2018 FINDINGS: An intracranial bleed is not seen. The ventricles are normal in caliber. An extra-axial fluid collection is not noted. Fluid within the sinuses/mastoids is not seen. A cervical fracture is not seen. No dislocation is noted. Marked spondylosis cervical spine. Mild posterior subluxation C3 on C4 and C4 on C5. Central and fo raminal stenosis cervical spine The evaluation of mediastinum, radha, vessels, solid organs and bowel are limited secondary to the lack of contrast administration. Lungs are clear. No mediastinal or hilar lymphadenopathy. Coronary arterial calcifications No pleural effusion. No pericardial Cholelithiasis. Gallbladder wall is not thickened. Multiple, bilateral renal calculi. No hydronephrosis. 2.5 centimeter low-density mass left kidney nonspecific without IV contrast but probably a cyst. Mild stranding adjacent to the bladder Liver, spleen, pancreas and adrenals grossly normal Mild anterior subluxation of L5 on S1. Spondylolysis L5. Moderate spondylosis involves spine. This results in spinal stenosis Mild prostatic enlargement IMPRESSION: No acute intracranial abnormality is seen. A cervical fracture is not visualized. If the patient continues to have symptoms to suggest intracranial/spinal cord pathology MRI be recommended Cholelithiasis Multiple, bilateral nonobstructing renal calculi Mild stranding adjacent to the bladder may indicate inflammation Conclusions/Impression: CKD II with Proteinuria -No NSAIDs Hyponatremia -Continue IVF with NS Nephrolithiasis, non-obstructing -Continue IVF DM II with CKD & Polyneuropathy -RISS Hypoalbuminemia -Consider protein supplementation BPH with LUTS -Restart tamsulosin Hospitalist and ER notes reviewed Thank you kindly for the consultation
[2024-04-20 09:08] LABS: Blood Morphology Comment NOT SEEN (NOT SEEN); Platelet Estimate DECR; White Blood Cell Scan OK (OK)
--- NOTE | 2024-04-20 10:44 | P.PN ---
Date of Service: 04/20/24 Subjective: reports thursday night - had some slight beginnings of urinary incontinence/urgency Thursday morning woke up with urinary incontinence - some at times with associated urgency, other times "without any warning" states this progressed Thursday woke up and felt "drunk" in his legs. Denies vertigo, no dizz iness/lightheadedness, but felt like he was staggering around denies any muscle weakness at that time. As he was trying to get in his vehicle to go see his physician, he fell backwards landing on his buttocks and couldn't get back up As family were trying to get him up, he said he was having pain of his left leg. Since the fall, the left leg has felt heavy, like someone is holding it down / back. Also with some pain over his knee States pain is not the limiting factor with movement of his leg today, feels weakness in leg is about same still dealing with incontinence, but with associated urgency. denies any further episodes of incontinence without warning today denies any prior history of incontinence ROS: 10 point ROS as noted above, otherwise negative Physical Exam: GEN: Alert, oriented, NAD HEENT: Normal conjunctiva, sclera anicteric, CV: Regular rate and rhythm, no edema Pulm: Nonlabored respirations on room air, clear bilaterally ABD: soft, nontender, nondistended Integumentary: superficial skin abrasion to right garza, left elbow Neuro: Normal speech, normal affect, weakness at LLE - hip, str intact at plantar flexion/dorsiflexion, sensation similar on both lower extremities Problem List: Dysuria, Urinary urgency/frequency/incontinence Presumed prostatitis hx BPH wuth LUTS Left leg weakness Recent fall CKD2 hyponatremia Hyperlipidemia Hypertension Hypothyroidism DM2 with polyneuropathy hx PE Dysuria, Urinary urgency/frequency/incontinence Presumed prostatitis hx BPH wuth LUTS CT head/chest/abd (04/19): Mild stranding adjacent to bladdfer may indicate inflammation multiple bilateral non-obstructing renal calculi. 2.5 cm low-density mass left kidney probably a cyst Spondylolysis L5. Moderate spondylosis involves spine. Spinal stenosis Cholelithiasis urinalysis unremarkable. Follow urine culture given rocephin / levaquin in ED continue empiric rocephin (04/20-) continue IV fluids PRN analgesics / antiemetics Left leg weakness Recent fall Knee/hip xray (04/19): both negative for any acute findings. no dislocati ons/fractures. Osteoporosis CT abd/pelvis noted concern for possible spinal stenosis at l4-l5 weakness seems to be at hip, knee difficult to evaluate due to some pain Neuro consulted PT consult pain control CKD2 hyponatremia Nephrology consulted continue IV fluids continue to monitor renal function Monitor and replete electrolytes as needed. Hyperlipidemia Hypertension Hypothyroidism hx PE confirm home meds, restart as appropriate DM2 with polyneuropathy accu-checks, SSI VTE: lovenox Code: Full Dispo: Home, ~2 days
--- NOTE | 2024-04-20 15:29 | RAD REPORT ---
EXAM DESCRIPTION: MRI - Brain Wo Cont - 04/20/2024 2:52 pm CLINICAL HISTORY: LLE weakness, unsteady gait Headache, drowsiness. COMPARISON: <Comparisons> TECHNIQUE: Multi-sequence, multiplanar MR imaging of the brain was performed without contrast. FINDINGS: No intracranial hemorrhage, hydrocephalus or extra-axial fluid collections.Moderate diffus e brain atrophy. No edema or shift of midline structures. No findings to suspect brain mass. DWI is n egative for acute CVA. Midline structures are normally formed. Mastoid air cells and paranasal sinuses are clear. IMPRESSION: Negative for acute CVA or other acute intracranial process.
--- NOTE | 2024-04-20 16:02 | RAD REPORT ---
EXAM DESCRIPTION: MRI - Lumbar Spine Vilma Munoz- 04/20/2024 3:14 pm CLINICAL HISTORY: LLE weakness, unsteady gait, urinary incontinence COMPARISON: <Comparisons> FINDINGS: Vertebral body heights are within normal limits. No aggressive marrow pattern is observed. No fracture is suspected. The conus medullaris terminates at a normal level. No thickening of the cauda equina or clumping of n erve roots seen. L1-2 level: Broad-based posterior disc bulge asymmetric to the left is present. This results in signi ficant left-sided lateral recess stenosis. Mild facet and ligamentum flavum hypertrophy. Moderate jimy tral canal narrowing. L2-3 level: Mild to moderate posterior disc bulge is seen with moderate facet and ligamentum flavum h ypertrophy. Mild central canal stenosis and left lateral recess narrowing. L3-4 level: Prominent bony spurring is present with moderate to significant facet and ligamentum flav um hypertrophy. Moderate central canal narrowing is seen. L4-5 level: Central disc protrusion is present with posterior annular fissure. This measures 4 mm in anterior-posterior dimension. Moderate facet and ligamentum flavum hypertrophy. Moderate right-sided exit foraminal stenosis. L5-S1 level: 12 mm degenerative anterolisthesis is present posterior disc bulge is seen with posterio r annular fissure noted. Moderate facet and ligamentum flavum hypertrophy is evident. Significant annette ateral exit foraminal stenosis. IMPRESSION: Multilevel degenerative spondylosis is present. Significant left lateral recess stenosis is present at L1-2 as detailed. 12 mm degenerative anterolisthesis of L5 on S1.
--- NOTE | 2024-04-20 16:33 | EKG ---
Test Date: 2024-04-19 Test Time: 16:38:11 [employer]estock [employer]er: DIETERW MEASUREMENT RESULTS: Intervals: Rate: 122 HI: 154 QRSD: 70 QT: 288 QTc: 410 [place]: P: 62 HI: 154 QRS: 48 T: 13 INTERPRETIVE STATEMENTS: Sinus tachycardia with premature atrial complexes Low voltage QRS Borderline ECG No previous ECG available for comparison Electronically Signed On 04-20-24 16:32:18 CDT by Emir Rabago
[2024-04-20 22:56] VITALS: BMI 34.8
--- NOTE | 2024-04-21 02:35 | CON ---
Reason For Consultation: Called for consultation due to very recent-onset urinary incontinence and l eft-sided lower extremity weakness. History Of Present Illness: Mr. Matamoros is a 78-year-old patient with hypertension, chronic kidney disease, hypothyroidism, pulmonary embolism, obesity, who developed sudden difficulty controlling ur ine around April 20. He was actually able to mobilize while having difficulty with urination, but as he attempted to enter his car, he fell, landing up on his buttocks and developed pain in his back. Subsequently, he noted some weakness and pain in the left lower extremity with difficulty flexing at the hip when lifting his knee and extending his foot. His distal strength in the left lower extremit y was maintained. He denied right leg numbness or weakness, or weakness in the upper extremities. A [facility], he had head, abdomen, chest, pelvis CT scan as a trauma series. The studies s howed no cervical fracture. There was mild posterior subluxation of C3, C4, C5 and central and racquel inal spinal stenosis noted, but mild. His abdominal area showed gallbladder wall was not thickened. There were multiple bilateral renal calculi. No hydronephrosis. Liver, spleen, pancreas, adrenals appeared normal. Within the brain, his ventricles are of normal caliber and size. There was no intr acranial bleeding. Subsequent MRI of his brain done today showed no acute ischemic or hemorrhagic fi ndings. Negative for any significant findings as well. However, there was moderate diffuse brain at rophy noted. Lumbar spine MRI without contrast did show moderate right-sided foraminal stenosis at C 4-5. At the L5-S1 level, there was significant bilateral exit foraminal stenosis. The impression wa s significant left lateral recess stenosis noted at L1-2 and somewhat noted on the right side at L4-5 and at the L5-S1 level. The patient's blood work on the , that is today, remarkable for low plat elets and essentially otherwise unremarkable. Coagulation panel normal. Basic metabolic panel was u nremarkable except slightly elevated glucose around 157. Calcium 8.9. TSH normal at 2.88. Liver fu nction studies unremarkable. Urinalysis showed trace ketones, 2+ blood, 1+ nitrite, 1+ protein, 4+ g lucose. COVID testing was negative. Past Medical History: As noted. Family History: Noncontributory. Social History: No alcohol, tobacco, or IV drug use. The patient lives in a single family home. Allergies: PENICILLIN, SULFA, CONTRAST DYE, AND BEE STING. Medications: Tylenol 500 mg every 6 hours as needed, albuterol nebulizer 0.083% and it is 2.5 mg pretty ry 6 hours, aspirin 81 mg daily, Rocephin 1 g daily, Lovenox 40 mg subcutaneously daily, Apresoline 1 0 mg every 6 hours as needed, Zofran 4 mg every 8 hours as needed. Review of Systems: He notes some improvement in his ability to get to the bathroom. He says he is able to go from the b ed to the bathroom without loss of urine control, and he has about 50% return, although weakness in t he left lower extremity. He said he is able to ambulate down the hallway about 100 feet total with r yadielling walker and physical therapist earlier in the day. He does have some issues of chronic reduced range of motion in the elbows and shoulders. Otherwise, systems review is unremarkable. Physical Examination: Vital Signs: Blood pressure 130/78, pulse 96, respiratory rate 18, temperature 97.0, oxygen saturati on 96%. Weight 257 pounds, height 6 feet, BMI 34.9. General: Mr. Matamoros is sitting on the side of the bed. HEENT: He is normocephalic, atraumatic. Sclerae anicteric. Oropharynx moist. Extremities: Show significant stasis changes with discoloration from mid leg down. The patient has left total knee arthroplasty scar that is well healed. Otherwise, no general deficits. Neurological: Cranial nerves intact. Upper extremities: He has some decreased range of motion with contractures at the elbow, but essentially about 4/5 at least strength symmetrical in upper extremit ies. The right lower extremity proximally and distally 5/5. In the left lower extremity, for hip el evation, that is for his knee to be elevated, around 4/5 and left knee extension 4/5. Dorsiflexion a nd plantar flexion on the left 5/5. Sensation: Marked stocking glove loss to light, touch, temperat ure. Deep tendon reflexes absent on the left and is trace in the right knee, otherwise nothing at th e ankles. Coordination: Upper and lower extremities intact. Gait: He did ambulate with a rolling walker and physical therapist. He did cover 110 feet, had no obvious gait abnormalities. Today, how ever, his left leg was weak and weaker than usual. Assessment And Plan: Mr. Matamoros is a 78-year-old patient with multiple medical problems as noted, who had fairly sudden-onset inability to control urine, which is now improving significantly. He ma d a subsequent fall and imaging of the spine did not show fractures in the bone, but multiple areas o f disk herniation in multilevel, left and right, perhaps more left-sided L1-2 nerve root stenosis. H e does have more proximal than distal left lower extremity weakness, potentially which can lead to th e higher lumbar vertebrae levels being involved. He is recovering fairly well with just short durati on physical therapy. However, he does still have a significant risk of falling and injury, and at th is point is best suited for aggressive inpatient rehabilitation for him to be able to fully return to his independent level of functioning, ambulation, and all activities of daily living. He should con tinue with all his aggressive management of comorbid issues, including potential for urinary tract in fection, electrolyte abnormalities, and management of his pain. He will be followed in the hospital, especially if he is able to go to the inpatient rehabilitation unit. He has no evidence of stroke o n MRI or examination. AMILCAR/CECILIA Voice ID: [id number] Report ID: [id number]
[2024-04-21] MEDS ORDERED: ONDANSETRON 4 MG/2 ML VIAL IV PRN (03:00)
[2024-04-21 07:08] LABS: Absolute Eosinophils 0.1 K/uL (0-0.5); Absolute Lymphocytes (CBC) 0.7 K/uL (0.7-4.9); Absolute Monocytes 0.9 K/uL (0.1-1.3); Absolute Neutrophil 3.8 K/uL (1.8-8.0); Basophils % 0.3 % (0-1.3); Eosinophils % 1.2 % (0-4.4); Hematocrit 44.2 % (39.6-49.0); Hemoglobin 14.7 g/dL (13.6-17.9); MCH 29.5 pg (27.0-35.0); MCHC 33.2 g/dL (32.0-36.0); MCV 88.6 fL (80-100); MPV 7.4 fL (7.6-11.3); Neutrophils % 69.5 % (41.7-73.7); Nucleated Red Blood Cells % 0.1 % (0-0); Platelets 105 thou/uL (152-406); RBC Red Blood Cell Count 4.99 M/uL (4.33-5.43); Red Cell Distribution Width 15.5 % (12.1-15.2)
[2024-04-21 07:43] LABS: ALT/SGPT 21 U/L (16-61); Albumin 2.9 g/dL (3.4-5.0); Albumin/Globulin Ratio 0.8 (1.1-1.8); Alkaline Phosphatase 55 U/L (45-117); Anion Gap 7.4 mEq/L (5.0-15.0); BUN Blood Urea Nitrogen 18 mg/dL (7-18); Bicarbonate 28 mEq/L (21-32); Bilirubin Total 0.5 mg/dL (0.2-1.0); Creatine Phosphokinase 46 U/L (39-308); Globulin 3.8 g/dL (2.3-3.5); Glomerular Filtration Rate 82 ml/min (=/>90); Glucose Level 119 mg/dL (74-106); Magnesium 2.1 mg/dL (1.6-2.4); Potassium 4.4 mEq/L (3.5-5.1); Protein, Total 6.7 g/dL (6.4-8.2); Sodium Level 136 mEq/L (136-145)
[2024-04-21 07:46] LABS: AST/SGOT < 10 U/L (15-37)
[2024-04-21] MEDS ORDERED: TAMSULOSIN 0.4 MG SR CAP PO SCH (09:00)
[2024-04-21] MEDS: GABAPENTIN 300 MG CAP PO SCH (09:14)
[2024-04-21] MEDS: METOPROLOL TAR 25 MG TAB PO SCH (09:14)
--- NOTE | 2024-04-21 12:20 | P.PN ---
Date of Service: 04/21/24 Subjective: Feeling a little better improving with PT. able to ambulate around the floor with walker and assistance patient states he would prefer home health to rehab given his improvement more control of urination as well afebrile ROS: 10 point ROS as noted above, otherwise negative Physical Exam: GEN: Alert, oriented, NAD HEENT: Normal conjunctiva, sclera anicteric, CV: Regular rate and rhythm, no edema Pulm: Nonlabored respirations on room air, clear bilaterally ABD: soft, nontender, nondistended Integumentary: superficial skin abrasion to right garza, left elbow Neuro: Normal speech, normal affect, weakness at LLE - hip, str intact at plantar flexion/dorsiflexion, sensation similar on both lower extremities Problem List: Dysuria, Urinary urgency/frequency/incontinence Presumed prostatitis vs cystitis hx BPH wuth LUTS Left leg weakness Recent fall CKD2 hyponatremia Hyperlipidemia Hypertension Hypothyroidism DM2 with polyneuropathy hx PE Dysuria, Urinary urgency/frequency/incontinence Presumed prostatitis vs cystitis hx BPH wuth LUTS CT head/chest/abd (04/19): Mild stranding adjacent to bladdfer may indicate inflammation multiple bilateral non-obstructing renal calculi. 2.5 cm low-density mass left kidney probably a cyst Spondylolysis L5. Moderate spondylosis involves spine. Spinal stenosis Cholelithiasis urinalysis unremarkable. Follow urine culture given rocephin / levaquin in ED continue empiric rocephin (04/20-) continue IV fluids flomax PRN analgesics / antiemetics Left leg weakness Recent fall Knee/hip xray (04/19): both negative for any acute findings. no dislocations/fractures. Osteoporosis CT abd/pelvis noted concern for possible spinal stenosis at l4-l5 weakness seems to be at hip, knee difficult to evaluate due to some pain Neuro consulted PT consult pain control CKD2 hyponatremia Nephrology consulted continue IV fluids continue to monitor renal function Monitor and replete electrolytes as needed. Hyperlipidemia Hypertension Hypothyroidism hx PE confirm home meds, restart as appropriate DM2 with polyneuropathy accu-checks, SSI VTE: lovenox Code: Full Dispo: home with HH, ~1 day
[2024-04-21] MEDS ORDERED: ALBUTEROL 2.5 MG/3 ML NEB SOL NEB PRN (16:54)
--- NOTE | 2024-04-21 19:52 | P.PN ---
Date of Service: 04/21/24 Vital Signs Temp Pulse Resp BP Pulse Ox 97.3 F 92 H 18 166/80 H 98 04/21/24 16:00 04/21/24 16:00 04/21/24 16:00 04/21/24 16:00 04/21/24 16:00 Medications Acetaminophen (Acetaminophen 500 Mg Tab) 500 mg PO Q6H PRN PRN Reason: Pain scale 2-4 (Mild) Albuterol Sulfate (Albuterol 2.5 Mg/3 Ml Neb Nichole) 2.5 mg NEB [id number] PRN PRN Reason: SHORTNESS OF BREATH Apixaban (Apixaban 5 Mg Tablet) 5 mg PO BID [facility] Aspirin (Aspirin Ec 81 Mg Tab) 81 mg PO DAILY [facility] Last Admin: 04/21/24 09:14 Dose: 81 mg Atorvastatin Calcium (Atorvastatin 10 Mg Tab) 10 mg PO BEDTIME JODY Gabapentin (Gabapentin 300 Mg Cap) 600 mg PO BID [facility] Last Admin: 04/21/24 09:14 Dose: 600 mg Hydralazine HCl (Hydralazine Hcl 20 Mg/Ml Vial) 10 mg IV Q6HP PRN PRN Reason: FOR SBP>160 OR DBP>100 MMHG Ceftriaxone Sodium 1,000 mg/ (Sodium Chloride) 50 mls @ 100 mls/hr IVPB DAILY [facility]; Protocol Last Admin: 04/21/24 09:14 Dose: 50 mls Insulin Human Regular (Insulin Regular (Human) 100 Unit/Ml) 0 unit SQ ACHS [facility]; Protocol Last Admin: 04/21/24 16:30 Dose: Not Given Levothyroxine Sodium (Levothyroxine Sod 0.075 Mg Tab) 0.075 mg PO DAILYAC [facility] Lorazepam (Lorazepam 0.5 Mg Tablet) 0.5 mg PO DAILY PRN PRN Reason: INSOMNIA Metoprolol Tartrate (Metoprolol Tar 25 Mg Tab) 25 mg PO BID [facility] Last Admin: 04/21/24 09:14 Dose: 25 mg Morphine Sulfate (Morphine 4 Mg/Ml Syr) 2 mg IV Q4H PRN PRN Reason: Pain scale 8-10 (Severe) Ondansetron HCl (Ondansetron 4 Mg/2 Ml Vial) 4 mg IV Q8H PRN PRN Reason: NAUSEA / VOMITING Oxycodone/Acetaminophen (Oxycodone Hcl/Acetaminophen 5/325 Mg Tab) 1 tab PO Q4H PRN PRN Reason: Pain scale 5-7 (Moderate) Last Admin: 04/20/24 00:37 Dose: 1 tab Tamsulosin HCl (Tamsulosin 0.4 Mg Sr Cap) 0.4 mg PO BEDTIME [facility] Microbiology Results 04/19/24 16:32 Blood - Blood Aerobic Blood Culture - Preliminary No growth in 24 hours. 04/19/24 16:32 Blood - Blood Anaerobic Blood Culture - Preliminary No growth in 24 hours. 04/19/24 16:40 Blood - Blood Aerobic Blood Culture - Preliminary No growth in 24 hours. 04/19/24 16:40 Blood - Blood Anaerobic Blood Culture - Preliminary No growth in 24 hours. 04/19/24 16:26 Nasopharnyx Influenza Type A Antigen Screen - Final 04/19/24 16:26 Nasopharnyx Influenza Type B Antigen Screen - Final Assessment/ Plan: Nephrology No dyspnea No chest pain Feeling better No acute events overnight Vitals, medications, blood work and imaging reviewed in the chart General: In no apparent distress, Oriented x3, Cooperative HEENT: Atraumatic Neck: Supple Respiratory: Normal air movement Cardiovascular: Regular rate/rhythm, Edema Gastrointestinal: Soft and benign, Non-distended Musculoskeletal: No clubbing, No contractures Integumentary: No rashes, No cyanosis, Other (Venous Stasis) Neurological: Normal speech Laboratory Data (last 24 hrs) 04/19/24 04/19/24 04/19/24 16:40 16:40 16:40 WBC 9.50 Hgb 16.8 Hct 51.4 H Plt Count 121 L PT 15.0 H INR 1.38 Sodium 135 L Potassium 3.8 BUN 16 Creatinine 1.20 Glucose 178 H Magnesium 2.0 Total Bilirubin 0.9 AST 12 L ALT 28 Alkaline Phosphatase 66 Imagings Data: EXAM DESCRIPTION: [place] Single View04/19/2024 5:18 pm CLINICAL HISTORY: cough COMPARISON: none FINDINGS: The lungs appear clear of acute infiltrate. The heart is normal size IMPRESSION: No acute abnormalities displayed EXAM DESCRIPTION: CT - Head C Spine Cap Wo Con - 04/19/2024 4:52 pm CLINICAL HISTORY: Dizziness neck pain. Chest and abdominal. Urinary incontinence TECHNIQUE: Computed axial tomography of head, neck, chest, abdomen and pelvis obtained. IV and oral contrast not requested. Coronal and sagittal reconstruction performed. All CT scans are performed using dose optimization technique as appropriate and may include automated exposure control or mA/KV adjustment according to patient size. COMPARISON: CT chest 2019 FINDINGS: An intracranial bleed is not seen. The ventricles are normal in caliber. An extra-axial fluid collection is not noted. Fluid within the sinuses/mastoids is not seen. A cervical fracture is not seen. No dislocation is noted. Marked spondylosis cervical spine. Mild posterior subluxation C3 on C4 and C4 on C5. Central and foraminal stenosis cervical spine The evaluation of mediastinum, radha, vessels, solid organs and bowel are limited secondary to the lack of contrast administration. Lungs are clear. No mediastinal or hilar lymphadenopathy. Coronary arterial calcifications No pleural effusion. No pericardial Cholelithiasis. Gallbladder wall is not thickened. Multiple, bilateral renal calculi. No hydronephrosis. 2.5 centimeter low-density mass left kidney nonspecific without IV contrast but probably a cyst. Mild stranding adjacent to the bladder Liver, spleen, pancreas and adrenals grossly normal Mild anterior subluxation of L5 on S1. Spondylolysis L5. Moderate spondylosis involves spine. This results in spinal stenosis Mild prostatic enlargement IMPRESSION: No acute intracranial abnormality is seen. A cervical fracture is not visualized. If the patient continues to have symptoms to suggest intracranial/spinal cord pathology MRI be recommended Cholelithiasis Multiple, bilateral nonobstructing renal calculi Mild stranding adjacent to the bladder may indicate inflammation Conclusions/Impression: CKD II with Proteinuria -No NSAIDs Hyponatremia -Encourage nutrition Nephrolithiasis, non-obstructing -Maintain hydration HTN with CKD -Continue Metoprolol; titrate as needed DM II with CKD & Polyneuropathy -RISS Hypoalbuminemia -Consider protein supplementation BPH with LUTS -Continue tamsulosin Hospitalist notes reviewed Case reviewed with Dr. Ace
[2024-04-21] MEDS: APIXABAN 5 MG TABLET PO SCH (20:39)
[2024-04-21] MEDS: TAMSULOSIN 0.4 MG SR CAP PO SCH (20:39)
[2024-04-21] MEDS: ATORVASTATIN 10 MG TAB PO SCH (20:39)
[2024-04-21] MEDS ORDERED: HOME MED 1 EA UNK (Pravastatin Sodium [Pravastatin Sodium] 40 MG Tablet) PO SCH (21:00)
[2024-04-22] MEDS: LEVOTHYROXINE SOD 0.075 MG TAB PO SCH (05:49)
--- NOTE | 2024-04-22 07:24 | P.DS ---
Admission Date: 04/20/24 Discharge Date: 04/22/24 Disposition: [place] [facility] Discharge Condition: GOOD Reason for Admission: Dysuria, fall Consultations: Neurology - Dr. Brand Nephrology - Dr. Stratton Brief History of Present Illness: 78 yo M, PMH: DM/HLD/hypothyroidism/prior history of pulmonary embolism/hypertension, obesity, CKD Patient presented because of dysuria since the last 1 days with pain with voiding. He denies any flank pain. He denies any fever or chills. He denies any hematuria. 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 He states he has been unable to lift his left leg since then. He is a very poor historian and his family at bedside also not helping with history. He does not have his medications with him and so most history is unable to be obtained well. Arrival in the ED vital signs were stable. He had a history of the chest abdomen and pelvics done with findings of 2.5 cm left kidney mass worrisome for cyst, mild stranding around the bladder, mildly enlarged prostate, there was also noted L5-S1 spondylosis worrisome for spinal stenosis. No cervical fracture was noted. Laboratory workup was unremarkable creatinine 1.2, urinalysis was shows no leukocyte esterase or WBC. He has been admitted for presumed prostatitis and spinal stenosis symptoms Hospital Course: Problem List: Dysuria, Urinary urgency/frequency/incontinence; improving Presumed prostatitis vs cystitis hx BPH wuth LUTS Left leg weakness Recent fall Left lateral recess stenosis L1-L2 CKD2 hyponatremia Hyperlipidemia Hypertension Hypothyroidism DM2 with polyneuropathy hx PE Physician discharge instructions: Patient presented to the ED with dysuria, urinary urgency/frequency/incontinence, left leg weakness. Urine was positive for nitrites and glucose, no leuk esterase, WBCs, or bacteria. A urine culture was not obtained / not reflexed based on urine results. Blood cultures were negative. Given his symptoms and CT noting slight stranding around bladder, he was empirically treated for infection. Prostate was noted to be mildly enlarged. Uncertain if cystitis or prostatitis, however given his quick improvement of symptoms, suspect and will treat for cystitis with 10 days total antibiotics. EMR noted penicillin allergy of hives/rash. He did receive IV rocephin during hospitalization and tolerated well. Discharged with 7 days of levaquin which would have better prostate penetration in the event of prostate involvement. His urinary symptoms significantly improved. His left lower extremity weakness and pain was nearly back to baseline as well. CT abd/pelvis on admission noted L5 narrowing / concern for spinal canal sten osis. His symptoms were only one sided and not bilateral, however given the symptoms and onset, this was further evaluated by MRI. MRI noted multiple levels of disk herniation left and right, with more involvement on the left side with L1-[address] Brand was consulted. There is suspicion his fall may have jolted / caused some swelling/inflammation and caused some temporary impairment. On exam he did display more proximal muscle weakness which could be explained by the higher lumbar vertebrae levels involvement. Patient worked with PT throughout his hospitalization and was able to ambulate around the floor with a walker and assistance. Patient was feeling better, urinary symptoms improved, remained afebrile without leukocytosis, strength improving, and was deemed stable for discharge with home health. Medications Levaquin 7 days Flomax Resume home medications as previously prescribed. Follow up: PCP 3-5 days Neurology 1-2 months Please call to schedule / confirm appointments Lumbar spine MRI findings (04/20): Multilevel degenerative spondylosis is present. Significant left lateral recess stenosis is present at L1-2 as detailed. L1-2 level: Broad-based posterior disc bulge asymmetric to the left is present. This results in significant left-sided lateral recess stenosis. Mild facet and ligamentum flavum hypertrophy. Moderate central canal narrowing. L2-3 level: Mild to moderate posterior disc bulge is seen with moderate facet and ligamentum flavum hypertrophy. Mild central canal stenosis and left lateral recess narrowing. L3-4 level: Prominent bony spurring is present with moderate to significant facet and ligamentum flavum hypertrophy. Moderate central canal narrowing is seen. L4-5 level: Central disc protrusion is present with posterior annular fissure. This measures 4 mm in anterior-posterior dimension. Moderate facet and ligamentum flavum hypertrophy. Moderate right-sided exit foraminal stenosis. L5-S1 level: 12 mm degenerative anterolisthesis is present posterior disc bulge is seen with posterior annular fissure noted. Moderate facet and ligamentum flavum hypertrophy is evident. Significant bilateral exit foraminal stenosis. Physical Exam: GEN: Alert, oriented, NAD HEENT: Normal conjunctiva, sclera anicteric, CV: Regular rate and rhythm, no edema Pulm: Nonlabored respirations on room air, clear bilaterally ABD: soft, nontender, nondistended Integumentary: superficial skin abrasion to right garza, left elbow Neuro: Normal speech, normal affect Vital Signs/Physical Exam: Temp Pulse Resp BP Pulse Ox 97.8 F 92 H 20 131/62 96 04/22/24 04:00 04/22/24 04:00 04/22/24 04:00 04/22/24 04:00 04/22/24 04:00 Laboratory Data at Discharge: WBC 5.50 thou/uL (4.3-10.9) 04/21/24 06:30 Hgb 14.7 g/dL (13.6-17.9) 04/21/24 06:30 Hct 44.2 % (39.6-49.0) 04/21/24 06:30 Plt Count 105 thou/uL (152-406) L 04/21/24 06:30 PT 15.0 SECONDS (9.5-12.5) H 04/19/24 16:40 INR 1.38 04/19/24 16:40 Sodium 136 mEq/L (136-145) 04/21/24 06:30 Potassium 4.4 mEq/L (3.5-5.1) 04/21/24 06:30 BUN 18 mg/dL (7-18) 04/21/24 06:30 Creatinine 0.96 mg/dL (0.70-1.30) 04/21/24 06:30 Glucose 119 mg/dL (74-106) H 04/21/24 06:30 Magnesium 2.1 mg/dL (1.6-2.4) 04/21/24 06:30 Total Bilirubin 0.5 mg/dL (0.2-1.0) 04/21/24 06:30 AST < 10 U/L (15-37) L 04/21/24 06:30 ALT 21 U/L (16-61) 04/21/24 06:30 Alkaline Phosphatase 55 U/L (45-117) 04/21/24 06:30 Home Medications: Allopurinol 100 mg PO DAILY 04/20/24 Apixaban [Eliquis] 5 mg PO BID 06/05/24 Cyanocobalamin (Vitamin B-12) [Vitamin B-12] 1,000 mcg PO DAILY 04/20/24 Empagliflozin [Jardiance] 25 mg PO DAILY 04/20/24 Gabapentin 2 tab PO BID 04/20/24 Levothyroxine [Synthroid*] 75 mcg PO DAILY 04/20/24 Lisinopril [Zestril] 5 mg PO BEDTIME 04/20/24 Metformin HCl [Glucophage*] 850 mg PO BID 04/20/24 Metoprolol Tartrate 25 mg PO BID 04/20/24 Pravastatin Sodium 40 mg PO BEDTIME 04/20/24 Semaglutide [Ozempic] 0.5 mg SQ SEECOM 04/20/24 Tamsulosin [Flomax*] 0.4 mg PO BEDTIME 30 Days #30 cap 04/22/24 levoFLOXacin [Levaquin] 750 mg PO DAILY 7 Days #7 tab 04/22/24 New Medications: Tamsulosin [Flomax*] 0.4 mg PO BEDTIME 30 Days #30 cap levoFLOXacin [Levaquin] 750 mg PO DAILY 7 Days #7 tab Physician Discharge Instructions: Physician discharge instructions: Patient presented to the ED with dysuria, urinary urgency/frequency/incontinence, left leg weakness. Urine was positive for nitrites and glucose, no leuk esterase, WBCs, or bacteria. A urine culture was not obtained / not reflexed based on urine results. Blood cultures were negative. Given his symptoms and CT noting slight stranding around bladder, he was empirically treated for infection. Prostate was noted to be mildly enlarged. Uncertain if cystitis or prostatitis, however given his quick improvement of symptoms, suspect and will treat for cystitis with 10 days total antibiotics. EMR noted penicillin allergy of hives/rash. He did receive IV rocephin during hospitalization and tolerated well. Discharged with 7 days of levaquin which would have better prostate penetration in the event of prostate involvement. His urinary symptoms significantly improved. His left lower extremity weakness and pain was nearly back to baseline as well. CT abd/pelvis on admission noted L5 narrowing / concern for spinal canal stenosis. His symptoms were only one sided and not bilateral, however given the symptoms and onset, this was further evaluated by MRI. MRI noted multiple levels of disk herniation left and right, with more involvement on the left side with L1-[address] Brand was consulted. There is suspicion his fall may have jolted / caused some swelling/inflammation and caused some temporary impairment. On exam he did display more proximal muscle weakness which could be explained by the higher lumbar vertebrae levels involvement. Patient worked with PT throughout his hospitalization and was able to ambulate around the floor with a walker and assistance. Patient was feeling better, urinary symptoms improved, remained afebrile without leukocytosis, strength improving, and was deemed stable for discharge with home health. Medications Levaquin 7 days Flomax Resume home medications as previously prescribed. Follow up: PCP 3-5 days Neurology 1-2 months Please call to schedule / confirm appointments Lumbar spine MRI findings (04/20): Multilevel degenerative spondylosis is present. Significant left lateral recess stenosis is present at L1-2 as detailed. L1-2 level: Broad-based posterior disc bulge asymmetric to the left is present. This results in significant left-sided lateral recess stenosis. Mild facet and ligamentum flavum hypertrophy. Moderate central canal narrowing. L2-3 level: Mild to moderate posterior disc bulge is seen with moderate facet and ligamentum flavum hypertrophy. Mild central canal stenosis and left lateral recess narrowing. L3-4 level: Prominent bony spurring is present with moderate to significant facet and ligamentum flavum hypertrophy. Moderate central canal narrowing is seen. L4-5 level: Central disc protrusion is present with posterior annular fissure. This measures 4 mm in anterior-posterior dimension. Moderate facet and ligamentum flavum hypertrophy. Moderate right-sided exit foraminal stenosis. L5-S1 level: 12 mm degenerative anterolisthesis is present posterior disc bulge is seen with posterior annular fissure noted. Moderate facet and ligamentum flavum hypertrophy is evident. Significant bilateral exit foraminal stenosis. Referral faxed to the [place] transfer desk on 04/22/24 per [facility] protocol for home health set up. [facility]up: [facility] [Primary Care Provider] - Time spent managing pt's care (in minutes): 45
[2024-04-22 07:35] LABS: Anion Gap 5.7 mEq/L (5.0-15.0); Magnesium 1.9 mg/dL (1.6-2.4); Potassium 3.7 mEq/L (3.5-5.1)
[2024-04-22 08:21] VITALS: BP 145/76; TEMP 97.4
== END 2024-04-22 11:14 | disposition home health service (06) | DRG 552 ==
LOC: ER 15:19 → ERHOLD 20:33 → 4TH 21:57 → OBSVTOIN 04-20 18:02
PROVIDERS: ADMIT Internal Medicine; ATTEND Hospitalist
DX: M48.061 Spinal stenosis, lumbar region without neurogenic claudication (principal); N41.0 Acute prostatitis; E87.1 Hypo-osmolality and hyponatremia; N30.90 Cystitis, unspecified without hematuria; M54.32 Sciatica, left side; E03.9 Hypothyroidism, unspecified; E86.0 Dehydration; E78.5 Hyperlipidemia, unspecified; M25.562 Pain in left knee; N28.1 Cyst of kidney, acquired; I12.9 Hypertensive chronic kidney disease with stage 1 through stage 4 chronic kidney disease, or unspecified chronic kidney disease; N18.2 Chronic kidney disease, stage 2 (mild); E11.22 Type 2 diabetes mellitus with diabetic chronic kidney disease; E11.42 Type 2 diabetes mellitus with diabetic polyneuropathy; I87.8 Other specified disorders of veins; N20.0 Calculus of kidney; M81.0 Age-related osteoporosis without current pathological fracture; E88.09 Other disorders of plasma-protein metabolism, not elsewhere classified; N40.1 Benign prostatic hyperplasia with lower urinary tract symptoms; R33.8 Other retention of urine; Z88.0 Allergy status to penicillin; Z88.2 Allergy status to sulfonamides; Z11.52 Encounter for screening for COVID-19; Z79.01 Long term (current) use of anticoagulants; Z79.84 Long term (current) use of oral hypoglycemic drugs; Z91.030 Bee allergy status; Z91.041 Radiographic dye allergy status; Z79.890 Hormone replacement therapy; Z86.711 Personal history of pulmonary embolism; Z96.652 Presence of left artificial knee joint; Z79.899 Other long term (current) drug therapy; W19.XXXA Unspecified fall, initial encounter; Y99.9 Unspecified external cause status; Y92.9 Unspecified place or not applicable; Y93.9 Activity, unspecified
CPT/HCPCS: 36415; 70450; 70551; 71045; 71250; 72125; 72148; 80048; 80053; 80076; 81001; 82550; 82947; 83605; 83735; 83880; 84443; 84484; 85025; 85610; 87040; 87804; 87811; 93005; 96365; 96366; 96375; 97116; 97161; 97530; 99285; G0378; J0696; J1650; J2185; J2405; J7030